=== PATIENT | female | born 1985 | race Caucasian/White ===

== ENCOUNTER 2016-04-28 16:16 | Emergency (ER) | payer OTHER ==
[~2016-04-28 16:16] MED LIST: /LINE60TA; ACET500C PO; ALBU17IN INH; ALBU83IN INH; AUGM500T34 PO; BACT800T; CARV3.12 PO; IBUP-1114 PO; IBUP600T26 PO; INVA1INJ IV; KEFL500C; KLOR1POW2 PO; LABE10TAB PO; LASI40TA PO; LEXA1TAB2 PO; LISI2.5T3 PO; NORC5TAB PO; NORT10SO PO; PAME25CA PO; PERC5TAB6 PO; PERCOCET PO; PREN1TAB11 PO; PRIN20TA3 PO; [UNRECOGNIZED DRUG - OTHER]
[2016-04-28 17:10] LABS: BASO % 0.4 % (0.0-1.0); EOS # 0.2 K/mm3 (0.0-0.50); EOS % 1.8 % (0.0-3.0); LARGE UNSTAINED CELL # 0.2 K/mm3 (0.0-0.4); LARGE UNSTAINED CELL % 1.9 % (0.0-4.0); LYMPH # 2.4 K/mm3 (1.5-4.5); LYMPH % 27.3 % (24.0-44.0); MEAN CORPUSCULAR HEMOGLOBIN 28.4 pg (27.0-33.0); MEAN CORPUSCULAR HGB CONC 33.6 g/dl (32.0-36.5); MEAN CORPUSCULAR VOLUME 84.7 fl (80.0-96.0); MONO # 0.4 K/mm3 (0.0-0.8); MONO % 4.4 % (0.0-5.0); NEUTROPHILS # 5.5 K/mm3 (1.8-7.7); NEUTROPHILS % 64.3 % (36.0-66.0); PLATELET COUNT, AUTOMATED 248 k/mm3 (150-450); WHITE BLOOD COUNT 8.6 K/mm3 (4.0-10.0)
[2016-04-28 17:13] LABS: CONTROL LINE HCG INT CTR LINE PRESENT
[2016-04-28 17:18] LABS: ANION GAP 8 MEQ/L (8-16); BLOOD UREA NITROGEN 14 MG/DL (7-18); CALCIUM LEVEL 8.9 MG/DL (8.5-10.1); CARBON DIOXIDE LEVEL 25 MEQ/L (21-32); CHLORIDE LEVEL 110 MEQ/L (98-107); CREATININE FOR GFR 0.65 MG/DL (0.55-1.02); GLOMERULAR FILTRATION RATE > 60.0 (>60); GLUCOSE, FASTING 121 MG/DL (70-105); POTASSIUM SERUM 3.9 MEQ/L (3.5-5.1); SODIUM LEVEL 143 MEQ/L (136-145)
[2016-04-28 17:29] LABS: INR 0.96
[2016-04-28] MEDS ORDERED: KETOROLAC 30 MG/ML VIAL (J1885) As Ordered ONE (17:52)
[2016-04-28] MEDS ORDERED: NORCO, ANEXSIA 5/325MG TABLET (HYDROcodone/ACETAMINOPHEN) As Ordered ONE (19:06)
--- NOTE | 2016-04-28 19:09 | REP ---
Clinical: Right adnexal pain . Technique: Transabdominal pelvic ultrasound followed by transvaginal examination for better evaluation of the endometrium and adnexa with color Doppler evaluation of the ovaries. Findings: Bladder is unremarkable and measures 7.0 x 5.3 x 5.8 cm . Normal anteverted uterus measures 8.2 x 4.2 x 5.7 cm . The endometrial complex measures 13 mm thickness. No discrete uterine or endometrial abnormalities are appreciated. Bilateral ovaries are normal in appearance and vascularity without evidence for torsion. Right ovary measures 4.3 x 2.3 x 3.0 cm with 2.7 cm hemorrhagic cyst ; R I = 0.52 . Left ovary measures 2.6 x 2.7 x 2.3 cm ; R I = 0.49 . No pelvic fluid or adnexal mass lesion. . Impression: 2.7 cm hemorrhagic cyst in the right ovary. No evidence for torsion. No pelvic free fluid. Signed by Sandoval Madera MD 04/28/2016 07:01 P
--- NOTE | 2016-04-28 19:54 | EDDOCDS ---
Physician Documentation [facility] Name: Annia Pete Age: 30 yrs Sex: Female : 1985 Arrival Date: 04/28/2016 Time: 16:16 Bed 14 Private MD: [facility] Disposition: 04/28/16 19:19 Discharged to Home/Self Care. Impression: Chest pain, unspecified, Unspecified ovarian cysts - right hemorrhagic. - Condition is Stable. - Discharge Instructions: Nonspecific Chest Pain, Chest Wall Pain, Ovarian Cyst, Chest Wall Pain, [id number], Nonspecific Chest Pain, Cjuh-[id number], Ovarian Cyst, Zuma-or-Fuhf. - Prescriptions for [place] 5- 325 mg Oral Tablet - take 1 tablet by ORAL route every 6 hours As needed MDD: 4 tabs; 6 tablet. Naprosyn 500 mg Oral Tablet - take 1 tablet by ORAL route 2 times per day take with food; 30 tablet. - Medication Reconciliation, Local Pharmacy Hours form. - [facility] up: [facility] ; When: Call to arrange an appointment. - Problem is new. - Symptoms have improved. Historical: - Allergies: No known drug Allergies; - Home Meds: 1. Lexapro 20 mg Oral tab once daily 2. nortriptyline 25 mg Oral cap 1 cap nightly - PMHx: Cardiomyopathy; Hypertension; - PSHx: Cesearean Section; Hernia repair- Umbilical; - Social history: Smoking status: Patient uses tobacco products, heavy tobacco smoker. No barriers to communication noted, The patient speaks fluent Venezuelan, Speaks appropriately for age. - Family history: Not pertinent. - : The pt / caregiver states he / she is not on anticoagulants. Home medication list is obtained from the patient. - Exposure Risk Screening:: None identified. 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 6 in. (167.64 cm); Pain 10/10; 17:21 BP 105 / 67 (auto/); tm5 17:21 Pulse 100 MON; Pulse Ox 97% ; tm5 17:36 BP 112 / 72 (auto/); tm5 17:36 Pulse 96 MON; Pulse Ox 98% ; tm5 17:51 BP 111 / 73 (auto/); tm5 17:51 Pulse 92 MON; Pulse Ox 97% ; tm5 18:06 BP 104 / 61 (auto/); tm5 18:06 Pulse 92 MON; Pulse Ox 97% ; tm5 18:21 BP 101 / 64 (auto/); tm5 18:21 Pulse 86 MON; Pulse Ox 98% ; tm5 18:51 BP 111 / 85 (auto/); tm5 18:51 Pulse 118 MON; Pulse Ox 90% ; tm5 19:10 BP 120 / 68; Pulse 77; Resp 20; Temp 98.3(O); Pulse Ox 99% on R/A; Pain 7/10; tm5 19:51 BP 118 / 75; Pulse 89; Resp 18; Temp 97.8(O); Pulse Ox 98% on R/A; Pain 2/10; tm5 16:18 Body Mass Index 33.25 (93.44 kg, 167.64 cm) elp MDM: 16:29 ECG WITH READING ER PHYS+CARDIAG ordered. EDMS 16:57 Qc Chemist/Pulse Ox/q 30 min VS ordered. sd1 16:57 IV Saline Lock ordered. sd1 16:57 Rhythm Strip to chart ordered. sd1 16:57 Undress patient appropriately for examination ordered. sd1 16:58 Basic Metabolic Profile Ordered. EDMS 16:58 CBC with Diff Ordered. EDMS 16:58 Cardiac Injury Profile Ordered. EDMS 16:58 Prothrombin Time Profile\E\INR Ordered. EDMS 16:58 Troponin Ordered. EDMS 16:58 HCG,Serum Qualitative Ordered. EDMS 17:00 -US Pelvic Non-Ob Complete Ordered. EDMS 17:01 DUPLEX SCAN LIMITED (DOPPLER)+US Ordered. EDMS 17:23 Financial registration complete. zo 17:26 [facility] Payment Agreement was scanned into Booktrope and attached to record. zo 17:32 Basic Metabolic Profile Reviewed. sd1 17:32 CBC with Diff Reviewed. sd1 17:32 Cardiac Injury Profile Reviewed. sd1 17:32 Prothrombin Time Profile\E\INR Reviewed. sd1 17:32 Troponin Reviewed. sd1 17:32 HCG,Serum Qualitative Reviewed. sd1 17:45 ketorolac 30 mg IVP once ordered. sd1 18:30 Transvaginal NON- US Ordered. EDMS 18:53 HYDROcodone-acetaminophen 5 mg-325 mg 1 tabs PO once ordered. sd1 19:06 Chest, 1 View Ordered. EDMS Administered Medications: 17:54 Drug: ketorolac 30 mg [ketorolac 30 mg/mL (1 mL) injection solution (1 mL)] Route: IVP; rs3 Site: left antecubital; 19:10 Follow up: Response: No Adverse Reaction; Pain is decreased tm5 19:10 Drug: HYDROcodone-acetaminophen 1 tabs [hydrocodone 5 mg-acetaminophen 325 mg tablet (1 tm5 tabs)] Route: PO; Signatures: Dispatcher [employer] EDMS Rose Mary Finney MD MD sd1 Ash Patel JoshuaRN RN Kelly Heard RN RN tm5 Mayra Padilla RN rs3 The chart was reviewed and I authenticate all verbal orders and agree with the evaluation and treatment provided.Attachments: 17:26 [facility] Agreement [facility]
--- NOTE | 2016-04-28 19:55 | EDDOCDS ---
Nurse's Notes [facility] Name: Annia Pete Age: 30 yrs Sex: Female : 1985 Arrival Date: 04/28/2016 Time: 16:16 Bed 14 Private MD: [facility] Diagnosis: Chest pain, unspecified;Unspecified ovarian cysts-right hemorrhagic Presentation: 04/28 16:24 Presenting complaint: Patient states: Patient reports chest pain. Patient reports pain jmb has been present a couple days. Patient reports that its consistent. Patient denies aspirin prior to arrival. Adult Sepsis Screening: The patient does not have new or worsening altered mentation. Patient's respiratory rate is less than 22. Systolic blood pressure is greater than 100. Patient has a qSOFA score of 0- Negative Sepsis Screen. Suicide/Homicide risk assessment- the patient denies having any suicidal and/or homicidal ideations and does not present with any other emotional, behavioral or mental health complaints. Status: Patient is not a shared services representative or dependent. Transition of care: patient was not received from another setting of care. 16:24 Acuity: ILEANA Level 3 jmb 16:24 Method Of Arrival: Walkin/Carried/Asstd jmb Triage Assessment: 16:25 General: Appears uncomfortable, Behavior is appropriate for age, cooperative. Pain: jmb Location: chest Pain currently is 9 out of 10 on a pain scale. HIV screening NA for this visit Offered previously. Neurological: Level of Consciousness is awake, alert, obeys commands, Oriented to person, place, time. Respiratory: Airway is patent Respiratory effort is even, unlabored, Respiratory pattern is regular. GI: Abdomen is non- distended. Derm: Skin is pink, warm & dry. Musculoskeletal: Range of motion intact in all extremities. 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 Lexapro 20 mg Oral tab once daily 2. nortriptyline 25 mg Oral cap 1 cap nightly - PMHx: Cardiomyopathy; Hypertension; - PSHx: Cesearean Section; Hernia repair- Umbilical; - Social history: Smoking status: Patient uses tobacco products, heavy tobacco smoker. No barriers to communication noted, The patient speaks fluent Indonesian, Speaks appropriately for age. - Family history: Not pertinent. - : The pt / caregiver states he / she is not on anticoagulants. Home medication list is obtained from the patient. - Exposure Risk Screening:: None identified. Screenin:42 Screening information is obtained from the patient. Fall risk: No risks identified. hs1 Assistance ADL's: requires no assistance with activities of daily living. Abuse/DV Screen: The patient / caregiver reports he/she is: not in a situation that causes fear, pain or injury. Nutritional screening: No deficits noted. Advance Directives: There is no active DNR order. home support is adequate. Assessment: 16:40 General: Appears in no apparent distress, Behavior is appropriate for age, cooperative, hs1 crying. Pain: Location: chest and abdomen Pain currently is 8 out of 10 on a pain scale. Quality of pain is described as sharp, stabbing. Neurological: No deficits noted. Cardiovascular: Rhythm is sinus rhythm. Respiratory: Airway is patent Respiratory effort is even, unlabored, Respiratory pattern is regular, symmetrical. GI: Bowel sounds present X 4 quads. Abd is soft and non tender X 4 quads. Abd is tender to palpation in right groin area. GI: Reports nausea, Denies vomiting. GI: Abdomen is non- distended obese. Derm: Skin is pink, warm & dry. normal. 17:42 Reassessment: Patient appears in no apparent distress at this time. Pt aware of plan of hs1 care. Patient has no needs at present. . Adult Sepsis Screening: The patient does not have new or worsening altered mentation. Patient's respiratory rate is less than 22. Systolic blood pressure is greater than 100. Patient has a qSOFA score of 0- Negative Sepsis Screen. 19:10 Reassessment: Patient appears in no apparent distress at this time. pt complains of tm5 7/10 lower abdominal pain at this time, appears to be in no apparent distress is watching football at this time, states that her Ultrasound was done already as well . 19:51 Reassessment: Patient appears in no apparent distress at this time. Patient states tm5 feeling better. Patient states symptoms have improved. General:. Vital Signs: 16:18 BP 111 / 92; Pulse 104; Resp 18; Temp 98.4; Pulse Ox 100% ; Weight 93.44 kg; Height 5 elp ft. 6 in. (167.64 cm); Pain 10/10; 17:21 BP 105 / 67 (auto/); tm5 17:21 Pulse 100 MON; Pulse Ox 97% ; tm5 17:36 BP 112 / 72 (auto/); tm5 17:36 Pulse 96 MON; Pulse Ox 98% ; tm5 17:51 BP 111 / 73 (auto/); tm5 17:51 Pulse 92 MON; Pulse Ox 97% ; tm5 18:06 BP 104 / 61 (auto/); tm5 18:06 Pulse 92 MON; Pulse Ox 97% ; tm5 18:21 BP 101 / 64 (auto/); tm5 18:21 Pulse 86 MON; Pulse Ox 98% ; tm5 18:51 BP 111 / 85 (auto/); tm5 18:51 Pulse 118 MON; Pulse Ox 90% ; tm5 19:10 BP 120 / 68; Pulse 77; Resp 20; Temp 98.3(O); Pulse Ox 99% on R/A; Pain 7/10; tm5 19:51 BP 118 / 75; Pulse 89; Resp 18; Temp 97.8(O); Pulse Ox 98% on R/A; Pain 2/10; tm5 16:18 Body Mass Index 33.25 (93.44 kg, 167.64 cm) [facility] Vitals: 16:18 Log In Time: April 28, 2016 at 16:15. [facility] ED Course: 16:18 Patient visited by Neli Real PCA. elp 16:18 [facility] is Private Physician. elp 16:18 Patient visited by Neli Real PCA. elp 16:18 Patient moved to Waiting elp 16:18 Patient moved to Pre RCE elp 16:24 Triage Initiated jmb 16:27 Darling Arvizu, RN is Primary Nurse. jmb 16:27 Patient moved to 14 jmb 16:38 EKG done. (by ED staff). Reviewed by Rose Mary Finney MD. jrd 16:39 Patient visited by Telly gAustin PCA. jrd 16:40 Inserted saline lock: 18 gauge in left antecubital area and blood collected. The hs1 patient tolerated the procedure well. 16:49 Rose Mary Finney MD is Attending Physician. sd1 16:50 Patient visited by Rose Mary Finney MD. sd1 17:26 [facility] Payment Agreement was scanned into InstyBook and attached to record. zo 17:43 The patient / caregiver is instructed regarding the plan of care and ED course. hs1 18:04 Patient visited by Darling Arvizu RN. hs1 19:09 Patient visited by Kelly Marie RN. tm5 19:19 [facility] is Referral Physician. sd1 19:26 Primary Nurse role handed off by Darling Arvizu RN rs6 19:51 Patient visited by Kelly Marie RN. tm5 19:51 Discontinued lock intact, bleeding controlled, pressure dressing applied, No tm5 redness/swelling at site. No procedures done that require assistance. Administered Medications: 17:54 Drug: ketorolac 30 mg [ketorolac 30 mg/mL (1 mL) injection solution (1 mL)] Route: IVP; rs3 Site: left antecubital; 19:10 Follow up: Response: No Adverse Reaction; Pain is decreased tm5 19:10 Drug: HYDROcodone-acetaminophen 1 tabs [hydrocodone 5 mg-acetaminophen 325 mg tablet (1 tm5 tabs)] Route: PO; Order Results: Lab Order: Basic Metabolic Profile; SPEC'M 04/28/16 16:36 Test: GLUCOSE, FASTING; Value: 121; Range: 70-105; Abnormal: Above high normal; Units: MG/DL; Status: F Test: BLOOD UREA NITROGEN; Value: 14; Range: 7-18; Units: MG/DL; Status: F Test: CREATININE FOR GFR; Value: 0.65; Range: 0.55-1.02; Units: MG/DL; Status: F Test: GLOMERULAR FILTRATION RATE; Value: > 60.0; Range: >60; Status: F Test: SODIUM LEVEL; Value: 143; Range: 136-145; Units: MEQ/L; Status: F Test: POTASSIUM SERUM; Value: 3.9; Range: 3.5-5.1; Units: MEQ/L; Status: F Test: CHLORIDE LEVEL; Value: 110; Range: 98-107; Abnormal: Above high normal; Units: MEQ/L; Status: F Test: CARBON DIOXIDE LEVEL; Value: 25; Range: 21-32; Units: MEQ/L; Status: F Test: ANION GAP; Value: 8; Range: 8-16; Units: MEQ/L; Status: F Test: CALCIUM LEVEL; Value: 8.9; Range: 8.5-10.1; Units: MG/DL; Status: F Test Note: ; Units are mL/min/1.73 m2 Chronic Kidney Disease Staging per NKF: Stage I & II GFR >=60 Normal to Mildly Decreased Stage III GFR 30-59 Moderately Decreased Stage IV GFR 15-29 Severely Decreased Stage V GFR <15 Very Little GFR Left ESRD GFR <15 on [employer] Lab Order: CBC with Diff; SPEC'M 04/28/16 16:36 Test: WHITE BLOOD COUNT; Value: 8.6; Range: 4.0-10.0; Units: K/mm3; Status: F Test: RED BLOOD COUNT; Value: 4.75; Range: 4.00-5.40; Units: M/mm3; Status: F Test: HEMOGLOBIN; Value: 13.5; Range: 12.0-16.0; Units: g/dl; Status: F Test: HEMATOCRIT; Value: 40.2; Range: 36.0-47.0; Units: %; Status: F Test: MEAN CORPUSCULAR VOLUME; Value: 84.7; Range: 80.0-96.0; Units: fl; Status: F Test: MEAN CORPUSCULAR HEMOGLOBIN; Value: 28.4; Range: 27.0-33.0; Units: pg; Status: F Test: MEAN CORPUSCULAR HGB CONC; Value: 33.6; Range: 32.0-36.5; Units: g/dl; Status: F Test: RED CELL DISTRIBUTION WIDTH; Value: 13.0; Range: 11.5-14.5; Units: %; Status: F Test: PLATELET COUNT, AUTOMATED; Value: 248; Range: 150-450; Units: k/mm3; Status: F Test: NEUTROPHILS %; Value: 64.3; Range: 36.0-66.0; Units: %; Status: F Test: LYMPH %; Value: 27.3; Range: 24.0-44.0; Units: %; Status: F Test: MONO %; Value: 4.4; Range: 0.0-5.0; Units: %; Status: F Test: EOS %; Value: 1.8; Range: 0.0-3.0; Units: %; Status: F Test: BASO %; Value: 0.4; Range: 0.0-1.0; Units: %; Status: F Test: LARGE UNSTAINED CELL %; Value: 1.9; Range: 0.0-4.0; Units: %; Status: F Test: NEUTROPHILS #; Value: 5.5; Range: 1.8-7.7; Units: K/mm3; Status: F Test: LYMPH #; Value: 2.4; Range: 1.5-4.5; Units: K/mm3; Status: F Test: MONO #; Value: 0.4; Range: 0.0-0.8; Units: K/mm3; Status: F Test: EOS #; Value: 0.2; Range: 0.0-0.50; Units: K/mm3; Status: F Test: BASO #; Value: 0.0; Range: 0.0-0.2; Units: K/mm3; Status: F Test: LARGE UNSTAINED CELL #; Value: 0.2; Range: 0.0-0.4; Units: K/mm3; Status: F Lab Order: Cardiac Injury Profile; SPEC'M 04/28/16 16:36 Test: CPK CREATINE PHOSPHOKINASE; Value: 67; Range: 26-192; Units: U/L; Status: F Test: CK-MB VALUE MASS; Value: 1.0; Range: 0.0-3.6; Units: NG/ML; Status: F Test: MB/CK RELATIVE INDEX; Value: 1.49; Range: < OR =4; Status: F Test Note: ; DIAGNOSIS CRITERIA MMB ng/ml Relative Index (RI) NON-AMI < or = 5 N/A COOPER ZONE > 5 < or = 4 AMI > 5 > 4 Lab Order: Prothrombin Time Profile\E\INR; SPEC'M 04/28/16 16:36 Test: PROTHROMBIN TIME; Value: 12.9; Range: 12.3-14.5; Units: SECONDS; Status: F Test: INR; Value: 0.96; Status: F Test Note: ; THERAPUTIC HUMAN INR VALUES INDICATIONS NORMAL RANGES PROPHYLAXIS/TREATMENT OF: VENOUS THROMBOSIS 2.0-3.0 PULMONARY EMBOLISM 2.0-3.0 PREVENTION OF SYSTEMIC EMBOLISM FROM: TISSUE HEART VALVES 2.0-3.0 ACUTE MYOCARDIAL INFARCTION 2.0-3.0 VALVULAR HEART DISEASE 2.0-3.0 ATRIAL FIBRILLATION 2.0-3.0 MECHANICAL VALVES(HIGH RISK) 2.5-3.5 RECURRENT MYOCARDIAL INFARCTION 2.5-3.5 Lab Order: Troponin; SPEC'M 04/28/16 16:36 Test: TROPONIN I; Value: < 0.02; Range: < 0.10; Units: NG/ML; Status: F Test Note: ; Troponin I Reference Interval for [employer] LOCI: 99th Percentile= 0.00-0.045 ng/ml Risk Stratification: <= 0.10 ng/ml Decreased Risk for Adverse Clinical Events. 0.10-1.50 ng/ml Increased Risk for Adverse Clinical Events. Evaluation of additional criterion and/or repeat testing in 2-6 hours is suggested to rule out myocardial damage. >= 1.50 ng/ml Indicative of Myocardial Injury. Lab Order: HCG,Serum Qualitative; SPEC'M 04/28/16 16:36 Test: HCG, SERUM QUALITATIVE; Value: NEGATIVE; Range: NEGATIVE; Status: F Outcome: 19:19 Discharge ordered by Provider. sd1 19:51 Discharge Assessment: Patient awake, alert and oriented x 3. No cognitive and/or tm5 functional deficits noted. Patient verbalized understanding of disposition instructions. patient administered narcotics - yes. Pt provided with safe discharge. The following High Risk Discharge criteria are identified: None. Discharged to home ambulatory, with significant other. Condition: good Condition: stable Condition: improved. Discharge instructions given to patient, Instructed on discharge instructions, follow up and referral plans. medication usage, no driving heavy equipment, Demonstrated understanding of instructions, medications, Pt was receptive of discharge instructions/ teaching. Prescriptions given X 2. Ultrasound Study completed. Property :Personal belongings accompany Pt. 19:53 Patient left the ED. tm5 Signatures: Rose Mary Finney MD MD sd1 Ash Patel Rosemary, RN RN rs3 Darling Arvizu RN RN hs1 Neli Real, MANDARIN TUTOR MANDARIN TUTOR Jossue Ruiz RN RN jmb Donoghue, Joseph, MANDARIN TUTOR MANDARIN TUTOR jrd Nirali Stubbs, MANDARIN TUTOR MANDARIN TUTOR rs6 Kelly Marie,RN RN tm5 MTDD
--- NOTE | 2016-04-28 20:37 | REP ---
Clinical: Chest pain . Comparison: 01/09/2015 . Findings: The mediastinum and cardiac silhouette are stable and within normal limits for portable technique. The lung lamb are clear without acute consolidation, effusion, or pneumothorax. Skeletal structures are intact. Impression: Normal portable chest x-ray Signed by Sandoval Madera MD 04/28/2016 08:28 P
--- NOTE | 2016-04-29 07:31 | ECGEPIP ---
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
--- NOTE | 2016-04-30 20:54 | EDDOCDS ---
Nurse's Notes [facility] Name: Cuca Peñaloza Age: 30 yrs Sex: Female : 1985 Arrival Date: 04/28/2016 Time: 16:16 Bed 14 Private MD: [facility] Diagnosis: Chest pain, unspecified;Unspecified ovarian cysts-right hemorrhagic Presentation: 04/28 16:24 Presenting complaint: Patient states: Patient reports chest pain. Patient reports pain jmb has been present a couple days. Patient reports that its consistent. Patient denies aspirin prior to arrival. Adult Sepsis Screening: The patient does not have new or worsening altered mentation. Patient's respiratory rate is less than 22. Systolic blood pressure is greater than 100. Patient has a qSOFA score of 0- Negative Sepsis Screen. Suicide/Homicide risk assessment- the patient denies having any suicidal and/or homicidal ideations and does not present with any other emotional, behavioral or mental health complaints. Status: Patient is not a social service director or dependent. Transition of care: patient was not received from another setting of care. 16:24 Acuity: ILEANA Level 3 jmb 16:24 Method Of Arrival: Walkin/Carried/Asstd jmb Triage Assessment: 16:25 General: Appears uncomfortable, Behavior is appropriate for age, cooperative. Pain: jmb Location: chest Pain currently is 9 out of 10 on a pain scale. HIV screening NA for this visit Offered previously. Neurological: Level of Consciousness is awake, alert, obeys commands, Oriented to person, place, time. Respiratory: Airway is patent Respiratory effort is even, unlabored, Respiratory pattern is regular. GI: Abdomen is non- distended. Derm: Skin is pink, warm & dry. Musculoskeletal: Range of motion intact in all extremities. 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 Lexapro 20 mg Oral tab once daily 2. nortriptyline 25 mg Oral cap 1 cap nightly - PMHx: Cardiomyopathy; Hypertension; - PSHx: Cesearean Section; Hernia repair- Umbilical; - Social history: Smoking status: Patient uses tobacco products, heavy tobacco smoker. No barriers to communication noted, The patient speaks fluent Welsh, Speaks appropriately for age. - Family history: Not pertinent. - : The pt / caregiver states he / she is not on anticoagulants. Home medication list is obtained from the patient. - Exposure Risk Screening:: None identified. Screenin:42 Screening information is obtained from the patient. Fall risk: No risks identified. hs1 Assistance ADL's: requires no assistance with activities of daily living. Abuse/DV Screen: The patient / caregiver reports he/she is: not in a situation that causes fear, pain or injury. Nutritional screening: No deficits noted. Advance Directives: There is no active DNR order. home support is adequate. Assessment: 16:40 General: Appears in no apparent distress, Behavior is appropriate for age, cooperative, hs1 crying. Pain: Location: chest and abdomen Pain currently is 8 out of 10 on a pain scale. Quality of pain is described as sharp, stabbing. Neurological: No deficits noted. Cardiovascular: Rhythm is sinus rhythm. Respiratory: Airway is patent Respiratory effort is even, unlabored, Respiratory pattern is regular, symmetrical. GI: Bowel sounds present X 4 quads. Abd is soft and non tender X 4 quads. Abd is tender to palpation in right groin area. GI: Reports nausea, Denies vomiting. GI: Abdomen is non- distended obese. Derm: Skin is pink, warm & dry. normal. 17:42 Reassessment: Patient appears in no apparent distress at this time. Pt aware of plan of hs1 care. Patient has no needs at present. . Adult Sepsis Screening: The patient does not have new or worsening altered mentation. Patient's respiratory rate is less than 22. Systolic blood pressure is greater than 100. Patient has a qSOFA score of 0- Negative Sepsis Screen. 19:10 Reassessment: Patient appears in no apparent distress at this time. pt complains of tm5 7/10 lower abdominal pain at this time, appears to be in no apparent distress is watching football at this time, states that her Ultrasound was done already as well . 19:51 Reassessment: Patient appears in no apparent distress at this time. Patient states tm5 feeling better. Patient states symptoms have improved. General:. Vital Signs: 16:18 BP 111 / 92; Pulse 104; Resp 18; Temp 98.4; Pulse Ox 100% ; Weight 93.44 kg; Height 5 elp ft. 6 in. (167.64 cm); Pain 10/10; 17:21 BP 105 / 67 (auto/); tm5 17:21 Pulse 100 MON; Pulse Ox 97% ; tm5 17:36 BP 112 / 72 (auto/); tm5 17:36 Pulse 96 MON; Pulse Ox 98% ; tm5 17:51 BP 111 / 73 (auto/); tm5 17:51 Pulse 92 MON; Pulse Ox 97% ; tm5 18:06 BP 104 / 61 (auto/); tm5 18:06 Pulse 92 MON; Pulse Ox 97% ; tm5 18:21 BP 101 / 64 (auto/); tm5 18:21 Pulse 86 MON; Pulse Ox 98% ; tm5 18:51 BP 111 / 85 (auto/); tm5 18:51 Pulse 118 MON; Pulse Ox 90% ; tm5 19:10 BP 120 / 68; Pulse 77; Resp 20; Temp 98.3(O); Pulse Ox 99% on R/A; Pain 7/10; tm5 19:51 BP 118 / 75; Pulse 89; Resp 18; Temp 97.8(O); Pulse Ox 98% on R/A; Pain 2/10; tm5 16:18 Body Mass Index 33.25 (93.44 kg, 167.64 cm) [facility] Vitals: 16:18 Log In Time: April 28, 2016 at 16:15. [facility] ED Course: 16:18 Patient visited by Neli Real PCA. elp 16:18 [facility] is Private Physician. elp 16:18 Patient visited by Neli Real PCA. elp 16:18 Patient moved to Waiting elp 16:18 Patient moved to Pre RCE elp 16:24 Triage Initiated jmb 16:27 Darling Arvizu, RN is Primary Nurse. jmb 16:27 Patient moved to 14 jmb 16:38 EKG done. (by ED staff). Reviewed by Rose Mary Finney MD. jrd 16:39 Patient visited by Telly Agustin PCA. jrd 16:40 Inserted saline lock: 18 gauge in left antecubital area and blood collected. The hs1 patient tolerated the procedure well. 16:49 Rose Mray Finney MD is Attending Physician. sd1 16:50 Patient visited by Rose Mary Finney MD. sd1 17:26 [facility] Payment Agreement was scanned into [employer] and attached to record. zo 17:43 The patient / caregiver is instructed regarding the plan of care and ED course. hs1 18:04 Patient visited by Darling Arvizu RN. hs1 19:09 Patient visited by Kelly Marie RN. tm5 19:19 [facility] is Referral Physician. sd1 19:26 Primary Nurse role handed off by Darling Arvizu RN rs6 19:51 Patient visited by Kelly Marie RN. tm5 19:51 Discontinued lock intact, bleeding controlled, pressure dressing applied, No tm5 redness/swelling at site. No procedures done that require assistance. 19:54 -US Pelvic Non-Ob Complete Returned. EDMS 20:32 T-Sheet-- Draft Copy was scanned into [employer] and attached to record. klr 20:38 ECG/EKG was scanned into [employer] and attached to record. klr 20:43 Chest, 1 View Returned. EDMS 04/29 07:59 EKG-ADULT Returned. EDMS Administered Medications: 04/28 17:54 Drug: ketorolac 30 mg [ketorolac 30 mg/mL (1 mL) injection solution (1 mL)] Route: IVP; rs3 Site: left antecubital; 19:10 Follow up: Response: No Adverse Reaction; Pain is decreased tm5 19:10 Drug: HYDROcodone-acetaminophen 1 tabs [hydrocodone 5 mg-acetaminophen 325 mg tablet (1 tm5 tabs)] Route: PO; Order Results: Lab Order: Basic Metabolic Profile; SPEC'M 04/28/16 16:36 Test: GLUCOSE, FASTING; Value: 121; Range: 70-105; Abnormal: Above high normal; Units: MG/DL; Status: F Test: BLOOD UREA NITROGEN; Value: 14; Range: 7-18; Units: MG/DL; Status: F Test: CREATININE FOR GFR; Value: 0.65; Range: 0.55-1.02; Units: MG/DL; Status: F Test: GLOMERULAR FILTRATION RATE; Value: > 60.0; Range: >60; Status: F Test: SODIUM LEVEL; Value: 143; Range: 136-145; Units: MEQ/L; Status: F Test: POTASSIUM SERUM; Value: 3.9; Range: 3.5-5.1; Units: MEQ/L; Status: F Test: CHLORIDE LEVEL; Value: 110; Range: 98-107; Abnormal: Above high normal; Units: MEQ/L; Status: F Test: CARBON DIOXIDE LEVEL; Value: 25; Range: 21-32; Units: MEQ/L; Status: F Test: ANION GAP; Value: 8; Range: 8-16; Units: MEQ/L; Status: F Test: CALCIUM LEVEL; Value: 8.9; Range: 8.5-10.1; Units: MG/DL; Status: F Test Note: ; Units are mL/min/1.73 m2 Chronic Kidney Disease Staging per NKF: Stage I & II GFR >=60 Normal to Mildly Decreased Stage III GFR 30-59 Moderately Decreased Stage IV GFR 15-29 Severely Decreased Stage V GFR <15 Very Little GFR Left ESRD GFR <15 on NURSE EXECUTIVE Lab Order: CBC with Diff; SPEC'M 04/28/16 16:36 Test: WHITE BLOOD COUNT; Value: 8.6; Range: 4.0-10.0; Units: K/mm3; Status: F Test: RED BLOOD COUNT; Value: 4.75; Range: 4.00-5.40; Units: M/mm3; Status: F Test: HEMOGLOBIN; Value: 13.5; Range: 12.0-16.0; Units: g/dl; Status: F Test: HEMATOCRIT; Value: 40.2; Range: 36.0-47.0; Units: %; Status: F Test: MEAN CORPUSCULAR VOLUME; Value: 84.7; Range: 80.0-96.0; Units: fl; Status: F Test: MEAN CORPUSCULAR HEMOGLOBIN; Value: 28.4; Range: 27.0-33.0; Units: pg; Status: F Test: MEAN CORPUSCULAR HGB CONC; Value: 33.6; Range: 32.0-36.5; Units: g/dl; Status: F Test: RED CELL DISTRIBUTION WIDTH; Value: 13.0; Range: 11.5-14.5; Units: %; Status: F Test: PLATELET COUNT, AUTOMATED; Value: 248; Range: 150-450; Units: k/mm3; Status: F Test: NEUTROPHILS %; Value: 64.3; Range: 36.0-66.0; Units: %; Status: F Test: LYMPH %; Value: 27.3; Range: 24.0-44.0; Units: %; Status: F Test: MONO %; Value: 4.4; Range: 0.0-5.0; Units: %; Status: F Test: EOS %; Value: 1.8; Range: 0.0-3.0; Units: %; Status: F Test: BASO %; Value: 0.4; Range: 0.0-1.0; Units: %; Status: F Test: LARGE UNSTAINED CELL %; Value: 1.9; Range: 0.0-4.0; Units: %; Status: F Test: NEUTROPHILS #; Value: 5.5; Range: 1.8-7.7; Units: K/mm3; Status: F Test: LYMPH #; Value: 2.4; Range: 1.5-4.5; Units: K/mm3; Status: F Test: MONO #; Value: 0.4; Range: 0.0-0.8; Units: K/mm3; Status: F Test: EOS #; Value: 0.2; Range: 0.0-0.50; Units: K/mm3; Status: F Test: BASO #; Value: 0.0; Range: 0.0-0.2; Units: K/mm3; Status: F Test: LARGE UNSTAINED CELL #; Value: 0.2; Range: 0.0-0.4; Units: K/mm3; Status: F Lab Order: Cardiac Injury Profile; SPEC'M 04/28/16 16:36 Test: CPK CREATINE PHOSPHOKINASE; Value: 67; Range: 26-192; Units: U/L; Status: F Test: CK-MB VALUE MASS; Value: 1.0; Range: 0.0-3.6; Units: NG/ML; Status: F Test: MB/CK RELATIVE INDEX; Value: 1.49; Range: < OR =4; Status: F Test Note: ; DIAGNOSIS CRITERIA MMB ng/ml Relative Index (RI) NON-AMI < or = 5 N/A COOPER ZONE > 5 < or = 4 AMI > 5 > 4 Lab Order: Prothrombin Time Profile\E\INR; SPEC'M 04/28/16 16:36 Test: PROTHROMBIN TIME; Value: 12.9; Range: 12.3-14.5; Units: SECONDS; Status: F Test: INR; Value: 0.96; Status: F Test Note: ; THERAPUTIC HUMAN INR VALUES INDICATIONS NORMAL RANGES PROPHYLAXIS/TREATMENT OF: VENOUS THROMBOSIS 2.0-3.0 PULMONARY EMBOLISM 2.0-3.0 PREVENTION OF SYSTEMIC EMBOLISM FROM: TISSUE HEART VALVES 2.0-3.0 ACUTE MYOCARDIAL INFARCTION 2.0-3.0 VALVULAR HEART DISEASE 2.0-3.0 ATRIAL FIBRILLATION 2.0-3.0 MECHANICAL VALVES(HIGH RISK) 2.5-3.5 RECURRENT MYOCARDIAL INFARCTION 2.5-3.5 Lab Order: Troponin; SPEC'M 04/28/16 16:36 Test: TROPONIN I; Value: < 0.02; Range: < 0.10; Units: NG/ML; Status: F Test Note: ; Troponin I Reference Interval for [employer] LOCI: 99th Percentile= 0.00-0.045 ng/ml Risk Stratification: <= 0.10 ng/ml Decreased Risk for Adverse Clinical Events. 0.10-1.50 ng/ml Increased Risk for Adverse Clinical Events. Evaluation of additional criterion and/or repeat testing in 2-6 hours is suggested to rule out myocardial damage. >= 1.50 ng/ml Indicative of Myocardial Injury. 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; : 1985 Requested By: Rose Mary Finney; Order Number: [id number] Reading MD: Rose Mary Finney; Measurements; Intervals Endeavor; Rate: 92 P: 64; GA: 160 QRS: 55; QRSD: 91 T: 61; QT: 331; QTc: 411; Interpretive Statements; SINUS RHYTHM WITH SINUS ARRHYTHMIA; ; Electronically Signed On 04-29-2016 7:31:36 EST by Rose Mary Finney; Radiology Order: -US Pelvic Non-Ob Complete Test: -US Pelvic Non-Ob Complete REASON FOR EXAMINATION: Adnexal Pain r/o Torsion; Clinical: Right adnexal pain .; ; Technique: Transabdominal pelvic ultrasound followed by transvaginal examination; for better evaluation of the endometrium and adnexa with color Doppler evaluation; of the ovaries.; ; Findings:; ; Bladder is unremarkable and measures 7.0 x 5.3 x 5.8 cm .; ; Normal anteverted uterus measures 8.2 x 4.2 x 5.7 cm . The endometrial complex; measures 13 mm thickness. No discrete uterine or endometrial abnormalities are; appreciated.; ; Bilateral ovaries are normal in appearance and vascularity without evidence for; torsion. Right ovary measures 4.3 x 2.3 x 3.0 cm with 2.7 cm hemorrhagic cyst ;; R I = 0.52 . Left ovary measures 2.6 x 2.7 x 2.3 cm ; R I = 0.49 .; ; No pelvic fluid or adnexal mass lesion. .; ; Impression:; 2.7 cm hemorrhagic cyst in the right ovary. No evidence for torsion. No; pelvic free fluid.; ; ; Signed by; Sandoval Madera MD 04/28/2016 07:01 P; Radiology Order: Chest, 1 View Test: Chest, 1 View REASON FOR EXAMINATION: Chest Pain; Clinical: Chest pain .; ; Comparison: 01/09/2015 .; ; Findings:; The mediastinum and cardiac silhouette are stable and within normal limits for; portable technique. The lung lamb are clear without acute consolidation,; effusion, or pneumothorax. Skeletal structures are intact.; ; Impression:; Normal portable chest x-ray; ; ; Signed by; Sandoval Madera MD 04/28/2016 08:28 P; Outcome: 19:19 Discharge ordered by Provider. sd1 19:51 Discharge Assessment: Patient awake, alert and oriented x 3. No cognitive and/or tm5 functional deficits noted. Patient verbalized understanding of disposition instructions. patient administered narcotics - yes. Pt provided with safe discharge. The following High Risk Discharge criteria are identified: None. Discharged to home ambulatory, with significant other. Condition: good Condition: stable Condition: improved. Discharge instructions given to patient, Instructed on discharge instructions, follow up and referral plans. medication usage, no driving heavy equipment, Demonstrated understanding of instructions, medications, Pt was receptive of discharge instructions/ teaching. Prescriptions given X 2. Ultrasound Study completed. Property :Personal belongings accompany Pt. 19:53 Patient left the ED. tm5 Signatures: Dispatcher [employer] EDMS Rose Mary Finney MD MD sd1 Ash Patel Rosemary,RN RN rs3 Darling Arvizu RN RN hs1 Neli Real, CONSTRUCTION FIELD ENGINEER CONSTRUCTION FIELD ENGINEER Jossue Ruiz,RN RN Telly Gambino, CONSTRUCTION FIELD ENGINEER CONSTRUCTION FIELD ENGINEER Nirali Quezada, CONSTRUCTION FIELD ENGINEER CONSTRUCTION FIELD ENGINEER rs6 Cherise Butler Tonya,RN RN tm5 Chart Complete GEMINI
--- NOTE | 2016-04-30 20:54 | EDDOCDS ---
Physician Documentation [facility] Name: Annia Pete Age: 30 yrs Sex: Female : 1985 Arrival Date: 04/28/2016 Time: 16:16 Bed 14 Private MD: [facility] Disposition: 04/28/16 19:19 Discharged to Home/Self Care. Impression: Chest pain, unspecified, Unspecified ovarian cysts - right hemorrhagic. - Condition is Stable. - Discharge Instructions: Nonspecific Chest Pain, Chest Wall Pain, Ovarian Cyst, Chest Wall Pain, [id number], Nonspecific Chest Pain, [id number], Ovarian Cyst, [id number]. - Prescriptions for [place] 5- 325 mg Oral Tablet - take 1 tablet by ORAL route every 6 hours As needed MDD: 4 tabs; 6 tablet. Naprosyn 500 mg Oral Tablet - take 1 tablet by ORAL route 2 times per day take with food; 30 tablet. - Medication Reconciliation, Local Pharmacy Hours form. - Follow up: [facility] ; When: Call to arrange an appointment. - Problem is new. - Symptoms have improved. Historical: - Allergies: No known drug Allergies; - Home Meds: 1. Lexapro 20 mg Oral tab once daily 2. nortriptyline 25 mg Oral cap 1 cap nightly - PMHx: Cardiomyopathy; Hypertension; - PSHx: Cesearean Section; Hernia repair- Umbilical; - Social history: Smoking status: Patient uses tobacco products, heavy tobacco smoker. No barriers to communication noted, The patient speaks fluent [place]agu[place], Speaks appropriately for age. - Family history: Not pertinent. - : The pt / caregiver states he / she is not on anticoagulants. Home medication list is obtained from the patient. - Exposure Risk Screening:: None identified. 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 [place] Vital Signs: 16:18 BP 111 / 92; Pulse 104; Resp 18; Temp 98.4; Pulse Ox 100% ; Weight 93.44 kg / 206 lbs; elp Height 5 ft. 6 in. (167.64 cm); Pain 10/10; 17:21 BP 105 / 67 (auto/); tm5 17:21 Pulse 100 MON; Pulse Ox 97% ; tm5 17:36 BP 112 / 72 (auto/); tm5 17:36 Pulse 96 MON; Pulse Ox 98% ; tm5 17:51 BP 111 / 73 (auto/); tm5 17:51 Pulse 92 MON; Pulse Ox 97% ; tm5 18:06 BP 104 / 61 (auto/); tm5 18:06 Pulse 92 MON; Pulse Ox 97% ; tm5 18:21 BP 101 / 64 (auto/); tm5 18:21 Pulse 86 MON; Pulse Ox 98% ; tm5 18:51 BP 111 / 85 (auto/); tm5 18:51 Pulse 118 MON; Pulse Ox 90% ; tm5 19:10 BP 120 / 68; Pulse 77; Resp 20; Temp 98.3(O); Pulse Ox 99% on R/A; Pain 7/10; tm5 19:51 BP 118 / 75; Pulse 89; Resp 18; Temp 97.8(O); Pulse Ox 98% on R/A; Pain 2/10; tm5 16:18 Body Mass Index 33.25 (93.44 kg, 167.64 cm) elp MDM: 16:29 ECG WITH READING ER PHYS+CARDIAG ordered. EDMS 16:57 Uniformer/Pulse Ox/q 30 min VS ordered. sd1 16:57 IV Saline Lock ordered. sd1 16:57 Rhythm Strip to chart ordered. sd1 16:57 Undress patient appropriately for examination ordered. sd1 16:58 Basic Metabolic Profile Ordered. EDMS 16:58 CBC with Diff Ordered. EDMS 16:58 Cardiac Injury Profile Ordered. EDMS 16:58 Prothrombin Time Profile\E\INR Ordered. EDMS 16:58 Troponin Ordered. EDMS 16:58 HCG,Serum Qualitative Ordered. EDMS 17:00 -US Pelvic Non-Ob Complete Ordered. EDMS 17:01 DUPLEX SCAN LIMITED (DOPPLER)+US Ordered. EDMS 17:23 Financial registration complete. zo 17:26 [facility] [place] was scanned into [employer] and attached to record. zo 17:32 Basic Metabolic Profile Reviewed. sd1 17:32 CBC with Diff Reviewed. sd1 17:32 Cardiac Injury Profile Reviewed. sd1 17:32 Prothrombin Time Profile\E\INR Reviewed. sd1 17:32 Troponin Reviewed. sd1 17:32 HCG,Serum Qualitative Reviewed. sd1 17:45 ketorolac 30 mg IVP once ordered. sd1 18:30 Transvaginal NON- US Ordered. EDMS 18:53 HYDROcodone-acetaminophen 5 mg-325 mg 1 tabs PO once ordered. sd1 19:06 Chest, 1 View Ordered. EDMS 20:32 T-Sheet-- Draft Copy was scanned into [employer] and attached to record. klr 20:38 ECG/EKG was scanned into [employer] and attached to record. klr Administered Medications: 17:54 Drug: ketorolac 30 mg [ketorolac 30 mg/mL (1 mL) injection solution (1 mL)] Route: IVP; rs3 Site: left antecubital; 19:10 Follow up: Response: No Adverse Reaction; Pain is decreased tm5 19:10 Drug: HYDROcodone-acetaminophen 1 tabs [hydrocodone 5 mg-acetaminophen 325 mg tablet (1 tm5 tabs)] Route: PO; Signatures: Dispatcher [employer] EDMS Rose Mary Finney MD MD sd1 Ash Patel Joshua, RN RN Cherise Allen Tonya, RN RN tm5 Mayra Padilla RN rs3 The chart was reviewed and I authenticate all verbal orders and agree with the evaluation and treatment provided.Attachments: 17:26 [facility] zo 20:32 T-Sheet-- Draft Copy klr 20:38 ECG/EKG klr Chart Complete MTDD
--- NOTE | 2016-04-30 20:54 | EDDOCDS ---
Physician Documentation [facility] Name: Annia Pete Age: 30 yrs Sex: Female : 1985 Arrival Date: 04/28/2016 Time: 16:16 Bed 14 Private [facility]: [facility] Disposition: 04/28/16 19:19 Discharged to Home/Self Care. Impression: Chest pain, unspecified, Unspecified ovarian cysts - right hemorrhagic. - Condition is Stable. - Discharge Instructions: Nonspecific Chest Pain, Chest Wall Pain, Ovarian Cyst, Chest Wall Pain, Otjf-rv-Rjul, Nonspecific Chest Pain, Vgtb-ng-Gwmo, Ovarian Cyst, Vjll-mr-Cihu. - Prescriptions for [place] 5- 325 mg Oral Tablet - take 1 tablet by ORAL route every 6 hours As needed MDD: 4 tabs; 6 tablet. Naprosyn 500 mg Oral Tablet - take 1 tablet by ORAL route 2 times per day take with food; 30 tablet. - Medication Reconciliation, Local Pharmacy Hours form. - Follow up: [facility] ; When: Call to arrange an appointment. - Problem is new. - Symptoms have improved. Historical: - Allergies: No known drug Allergies; - Home Meds: 1. Lexapro 20 mg Oral tab once daily 2. nortriptyline 25 mg Oral cap 1 cap nightly - PMHx: Cardiomyopathy; Hypertension; - PSHx: Cesearean Section; Hernia repair- Umbilical; - Social history: Smoking status: Patient uses tobacco products, heavy tobacco smoker. No barriers to communication noted, The patient speaks fluent [place], Speaks appropriately for age. - Family history: Not pertinent. - : The pt / caregiver states he / she is not on anticoagulants. Home medication list is obtained from the patient. - Exposure Risk Screening:: None identified. 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 6 in. (167.64 cm); Pain 10/10; 17:21 BP 105 / 67 (auto/); tm5 17:21 Pulse 100 MON; Pulse Ox 97% ; tm5 17:36 BP 112 / 72 (auto/); tm5 17:36 Pulse 96 MON; Pulse Ox 98% ; tm5 17:51 BP 111 / 73 (auto/); tm5 17:51 Pulse 92 MON; Pulse Ox 97% ; tm5 18:06 BP 104 / 61 (auto/); tm5 18:06 Pulse 92 MON; Pulse Ox 97% ; tm5 18:21 BP 101 / 64 (auto/); tm5 18:21 Pulse 86 MON; Pulse Ox 98% ; tm5 18:51 BP 111 / 85 (auto/); tm5 18:51 Pulse 118 MON; Pulse Ox 90% ; tm5 19:10 BP 120 / 68; Pulse 77; Resp 20; Temp 98.3(O); Pulse Ox 99% on R/A; Pain 7/10; tm5 19:51 BP 118 / 75; Pulse 89; Resp 18; Temp 97.8(O); Pulse Ox 98% on R/A; Pain 2/10; tm5 16:18 Body Mass Index 33.25 (93.44 kg, 167.64 cm) elp MDM: 16:29 ECG WITH READING ER PHYS+CARDIAG ordered. EDMS 16:57 Tie Up Worker/Pulse Ox/q 30 min VS ordered. sd1 16:57 IV Saline Lock ordered. sd1 16:57 Rhythm Strip to chart ordered. sd1 16:57 Undress patient appropriately for examination ordered. sd1 16:58 Basic Metabolic Profile Ordered. EDMS 16:58 CBC with Diff Ordered. EDMS 16:58 Cardiac Injury Profile Ordered. EDMS 16:58 Prothrombin Time Profile\E\INR Ordered. EDMS 16:58 Troponin Ordered. EDMS 16:58 HCG,Serum Qualitative Ordered. EDMS 17:00 -US Pelvic Non-Ob Complete Ordered. EDMS 17:01 DUPLEX SCAN LIMITED (DOPPLER)+US Ordered. EDMS 17:23 Financial registration complete. zo 17:26 [facility] Payment Agreement was scanned into [email or web address] and attached to record. zo 17:32 Basic Metabolic Profile Reviewed. sd1 17:32 CBC with Diff Reviewed. sd1 17:32 Cardiac Injury Profile Reviewed. sd1 17:32 Prothrombin Time Profile\E\INR Reviewed. sd1 17:32 Troponin Reviewed. sd1 17:32 HCG,Serum Qualitative Reviewed. sd1 17:45 ketorolac 30 mg IVP once ordered. sd1 18:30 Transvaginal NON- US Ordered. EDMS 18:53 HYDROcodone-acetaminophen 5 mg-325 mg 1 tabs PO once ordered. sd1 19:06 Chest, 1 View Ordered. EDMS 20:32 T-Sheet-- Draft Copy was scanned into [email or web address] and attached to record. klr 20:38 ECG/EKG was scanned into [email or web address] and attached to record. klr Administered Medications: 17:54 Drug: ketorolac 30 mg [ketorolac 30 mg/mL (1 mL) injection solution (1 mL)] Route: IVP; rs3 Site: left antecubital; 19:10 Follow up: Response: No Adverse Reaction; Pain is decreased tm5 19:10 Drug: HYDROcodone-acetaminophen 1 tabs [hydrocodone 5 mg-acetaminophen 325 mg tablet (1 tm5 tabs)] Route: PO; Signatures: Dispatcher [employer] EDMS Rose Mary Finney MD MD sd1 Ash Patel Joshua, RN RN Cherise Allen Tonya, RN RN tm5 Mayra Padilla RN rs3 The chart was reviewed and I authenticate all verbal orders and agree with the evaluation and treatment provided.Attachments: 17:26 [facility] Payment Agreement zo 20:32 T-Sheet-- Draft Copy klr 20:38 ECG/EKG klr Chart Complete MTDD
== END 2016-04-28 19:53 | disposition home or self-care (01) ==
LOC: M ED 16:16
DX: N83.291 Other ovarian cyst, right side (principal); I10 Essential (primary) hypertension; I42.9 Cardiomyopathy, unspecified; F17.200 Nicotine dependence, unspecified, uncomplicated; Z79.899 Other long term (current) drug therapy
CPT/HCPCS: 36415; 71010; 76830; 76856; 80048; 82550; 82553; 84703; 85025; 85610; 93005; 93041; 93976; 96374; 99285; J1885

== ENCOUNTER 2016-05-12 20:15 | Emergency (ER) | payer OTHER ==
--- NOTE | 2016-05-12 21:44 | EDDOCDS ---
Physician Documentation [facility] Name: Annia Pete Age: 30 yrs Sex: Female : 1985 Arrival Date: 05/12/2016 Time: 20:15 Bed Triage 3 Private MD: [facility] Disposition: 05/12/16 21:38 Discharged to Home/Self Care. Impression: Acute nasopharyngitis [common cold]. - Condition is Stable. - Discharge Instructions: Cool Mist Vaporizers, Upper Respiratory Infection, Adult, Zbnb-kh-Oozx, Viral Infections, Puih-Mk-Sjkt. - Medication Reconciliation, Local Pharmacy Hours form. - Follow up: [facility]; When: Call to arrange an appointment; Reason: Further diagnostic work-up, Recheck today's complaints, Continuance of care. - Problem is new. - Symptoms are unchanged. Historical: - Allergies: no known allergies; - Home Meds: 1. nortriptyline 25 mg Oral cap 1 cap nightly 2. Lexapro 20 mg Oral tab once daily - PMHx: Cardiomyopathy; Hypertension; - PSHx: Cesearean Section; Hernia repair- Umbilical; - Social history: Smoking status: Patient uses tobacco products, light tobacco smoker. No barriers to communication noted, The patient speaks fluent Arabic. - Family history: Not pertinent. - : The pt / caregiver states he / she is not on anticoagulants. Home medication list is obtained from the patient. - Exposure Risk Screening:: None identified. 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 7 in. (170.18 cm) (R); Pain 5/10; 20:17 Body Mass Index 32.26 (93.44 kg, 170.18 cm) elp Signatures: Mayra PadillaRN RN rs3 Papito Walden PA PA btw McIntyre, Stephanie,RUSS NANNY/HOUSEHOLD MANAGER slm MTDD
--- NOTE | 2016-05-12 21:44 | EDDOCDS ---
Nurse's Notes [facility] Name: Annia Pete Age: 30 yrs Sex: Female : 1985 Arrival Date: 05/12/2016 Time: 20:15 Bed Triage 3 Private MD: [facility] Diagnosis: Acute nasopharyngitis [common cold] Presentation: 05/12 20:23 Presenting complaint: Patient states: chest congestion for 3 days. Adult Sepsis rs3 Screening: The patient does not have new or worsening altered mentation. Patient's respiratory rate is less than 22. Systolic blood pressure is greater than 100. Patient has a qSOFA score of 0- Negative Sepsis Screen. Suicide/Homicide risk assessment- the patient denies having any suicidal and/or homicidal ideations and does not present with any other emotional, behavioral or mental health complaints. Status: Patient is not a track service worker or dependent. Transition of care: patient was not received from another setting of care. 20:23 Acuity: ILEANA Level 4 rs3 20:23 Method Of Arrival: Walkin/Carried/Asstd rs3 Triage Assessment: 20:24 General: Appears in no apparent distress. Pain: Denies pain. HIV screening NA for this rs3 visit Offered previously. Respiratory: Onset: The symptoms/episode began/occurred gradually. 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 nortriptyline 25 mg Oral cap 1 cap nightly 2. Lexapro 20 mg Oral tab once daily - PMHx: Cardiomyopathy; Hypertension; - PSHx: Cesearean Section; Hernia repair- Umbilical; - Social history: Smoking status: Patient uses tobacco products, light tobacco smoker. No barriers to communication noted, The patient speaks fluent Hebrew. - Family history: Not pertinent. - : The pt / caregiver states he / she is not on anticoagulants. Home medication list is obtained from the patient. - Exposure Risk Screening:: None identified. Screenin:42 Screening information is obtained from the patient. Fall risk: No risks identified. slm Assistance ADL's: requires no assistance with activities of daily living. Abuse/DV Screen: The patient / caregiver reports he/she is: not in a situation that causes fear, pain or injury. Nutritional screening: No deficits noted. Advance Directives: Currently, there is no health care proxy. There is no active DNR order. There is no living will. There is no Power of Manager Visual. Advance directive information has not previously been placed in an [facility] medical record. home support is adequate. Assessment: 21:42 General: Appears in no apparent distress, comfortable, Behavior is appropriate for age. slm General: pt c/o cough x 3 days . Respiratory: Airway is patent Respiratory effort is even, unlabored. Derm: Skin is pink, warm & dry. Vital Signs: 20:17 BP 120 / 83; Pulse 95; Resp 18; Temp 99.1(O); Pulse Ox 100% on R/A; Weight 93.44 kg elp (R); Height 5 ft. 7 in. (170.18 cm) (R); Pain 5/10; 20:17 Body Mass Index 32.26 (93.44 kg, 170.18 cm) elp Vitals: 20:17 Log In Time: May 12, 2016 at 20:15. elp ED Course: 20:16 Patient visited by Neli Real PCA. elp 20:16 Patient moved to Waiting elp 20:17 [facility] is Private Physician. elp 20:18 Patient visited by Neli Real PCA. elp 20:18 Patient moved to Pre RCE elp 20:23 Triage Initiated rs3 21:03 Patient moved to Triage 3 ct3 21:10 [facility] btw 21:10 Damian Mays DO is Attending Physician. btw 21:10 Patient visited by Papito Walden PA. btw 21:38 [facility] is Referral Physician. btw 21:42 No IV's were initiated during this patient's visit. No procedures done that require slm assistance. 21:43 Patient visited by Marely Giles LPN. slm 21:43 The patient / caregiver is instructed regarding the plan of care and ED course. Patient slm has correct armband on for positive identification. Bed in low position. Order Results: There are currently no results for this order. Outcome: 21:38 Discharge ordered by Provider. btw 21:43 Discharge Assessment: Patient awake, alert and oriented x 3. No cognitive and/or slm functional deficits noted. Patient verbalized understanding of disposition instructions. patient administered narcotics - no. The following High Risk Discharge criteria are identified: None. Discharged to home ambulatory. Condition: good. Discharge instructions given to patient, Instructed on discharge instructions, follow up and referral plans. Demonstrated understanding of instructions, Pt was receptive of discharge instructions/ teaching. No special radiology studies were completed. Property :Personal belongings accompany Pt. 21:43 Patient left the ED. slm Signatures: Mayra Padilla RN RN rs3 Papito Walden PA PA btw Kimberly Xie, PILLOW FILLER PILLOW FILLER ct3 Neli Real, PILLOW FILLER PILLOW FILLER elp Marely Giles,CLINICAL WRITER CLINICAL WRITER slm MTDD
--- NOTE | 2016-05-14 22:45 | EDDOCDS ---
Physician Documentation [facility] Name: Annia Pete Age: 30 yrs Sex: Female : 1985 Arrival Date: 05/12/2016 Time: 20:15 Bed Triage 3 Private MD: [facility] Disposition: 05/12/16 21:38 Discharged to Home/Self Care. Impression: Acute nasopharyngitis [common cold]. - Condition is Stable. - Discharge Instructions: Cool Mist Vaporizers, Upper Respiratory Infection, Adult, Sdmo-rp-Fdjm, Viral Infections, Tnqz-Ag-Ycok. - Medication Reconciliation, Local Pharmacy Hours form. - Follow up: [facility]; When: Call to arrange an appointment; Reason: Further diagnostic work-up, Recheck today's complaints, Continuance of care. - Problem is new. - Symptoms are unchanged. Historical: - Allergies: no known allergies; - Home Meds: 1. nortriptyline 25 mg Oral cap 1 cap nightly 2. Lexapro 20 mg Oral tab once daily - PMHx: Cardiomyopathy; Hypertension; - PSHx: Cesearean Section; Hernia repair- Umbilical; - Social history: Smoking status: Patient uses tobacco products, light tobacco smoker. No barriers to communication noted, The patient speaks fluent Danish. - Family history: Not pertinent. - : The pt / caregiver states he / she is not on anticoagulants. Home medication list is obtained from the patient. - Exposure Risk Screening:: None identified. 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 7 in. (170.18 cm) (R); Pain 5/10; 20:17 Body Mass Index 32.26 (93.44 kg, 170.18 cm) elp MDM: 21:44 Financial registration complete. [facility] 21:44 REPLACED BY [facility] Payment Agreement was scanned into [employer] and attached to record. 16 05/13 19:19 T-Sheet-- Draft Copy was scanned into [employer] and attached to record. klr Signatures: Mayra PadillaRN RN rs3 Papito Walden PA PA nadyaw Marely Giles LPN LPN Magy Richardson, Reg Reg ks16 Cherise Butler The chart was reviewed and I authenticate all verbal orders and agree with the evaluation and treatment provided.Attachments: 05/12 21:44 [facility] [place] Agreement 05/13 19:19 T-Sheet-- Draft Copy klr Chart Complete MTDD
--- NOTE | 2016-05-14 22:45 | EDDOCDS ---
Physician Documentation [facility] Name: Annia Pete Age: 30 yrs Sex: Female : 1985 Arrival Date: 05/12/2016 Time: 20:15 Bed Triage 3 Private MD: [facility] Disposition: 05/12/16 21:38 Discharged to Home/Self Care. Impression: Acute nasopharyngitis [common cold]. - Condition is Stable. - Discharge Instructions: Cool Mist Vaporizers, Upper Respiratory Infection, Adult, Zsft-mm-Fkrl, Viral Infections, Fdyx-Ip-Esob. - Medication Reconciliation, Local Pharmacy Hours form. - Follow up: [facility]; When: Call to arrange an appointment; Reason: Further diagnostic work-up, Recheck today's complaints, Continuance of care. - Problem is new. - Symptoms are unchanged. Historical: - Allergies: no known allergies; - Home Meds: 1. nortriptyline 25 mg Oral cap 1 cap nightly 2. Lexapro 20 mg Oral tab once daily - PMHx: Cardiomyopathy; Hypertension; - PSHx: Cesearean Section; Hernia repair- Umbilical; - Social history: Smoking status: Patient uses tobacco products, light tobacco smoker. No barriers to communication noted, The patient speaks fluent Bulgarian. - Family history: Not pertinent. - : The pt / caregiver states he / she is not on anticoagulants. Home medication list is obtained from the patient. - Exposure Risk Screening:: None identified. 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 7 in. (170.18 cm) (R); Pain 5/10; 20:17 Body Mass Index 32.26 (93.44 kg, 170.18 cm) elp MDM: 21:[address] [facility] 21:44 [facility] Payment Agreement was scanned into [employer] and attached to record. 16 05/13 19:19 T-Sheet-- Draft Copy was scanned into [employer] and attached to record. klr Signatures: Mayra PadillaRN RN rs3 Papito Walden PA PA nadyaw Marely Giles LPN LPN Magy Richardson, Reg Reg ks16 Cherise Butler The chart was reviewed and I authenticate all verbal orders and agree with the evaluation and treatment provided.Attachments: 05/12 21:44 [facility] Payment Agreement 05/13 19:19 T-Sheet-- Draft Copy klr Chart Complete MTDD
--- NOTE | 2016-05-14 22:45 | EDDOCDS ---
Nurse's Notes [facility] Name: Annia Pete Age: 30 yrs Sex: Female : 1985 Arrival Date: 05/12/2016 Time: 20:15 Bed Triage 3 Private MD: [facility] Diagnosis: Acute nasopharyngitis [common cold] Presentation: 05/12 20:23 Presenting complaint: Patient states: chest congestion for 3 days. Adult Sepsis rs3 Screening: The patient does not have new or worsening altered mentation. Patient's respiratory rate is less than 22. Systolic blood pressure is greater than 100. Patient has a qSOFA score of 0- Negative Sepsis Screen. Suicide/Homicide risk assessment- the patient denies having any suicidal and/or homicidal ideations and does not present with any other emotional, behavioral or mental health complaints. Status: Patient is not a visitor services information assistant or dependent. Transition of care: patient was not received from another setting of care. 20:23 Acuity: ILEANA Level 4 rs3 20:23 Method Of Arrival: Walkin/Carried/Asstd rs3 Triage Assessment: 20:24 General: Appears in no apparent distress. Pain: Denies pain. HIV screening NA for this rs3 visit Offered previously. Respiratory: Onset: The symptoms/episode began/occurred gradually. 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 nortriptyline 25 mg Oral cap 1 cap nightly 2. Lexapro 20 mg Oral tab once daily - PMHx: Cardiomyopathy; Hypertension; - PSHx: Cesearean Section; Hernia repair- Umbilical; - Social history: Smoking status: Patient uses tobacco products, light tobacco smoker. No barriers to communication noted, The patient speaks fluent Croatian. - Family history: Not pertinent. - : The pt / caregiver states he / she is not on anticoagulants. Home medication list is obtained from the patient. - Exposure Risk Screening:: None identified. Screenin:42 Screening information is obtained from the patient. Fall risk: No risks identified. slm Assistance ADL's: requires no assistance with activities of daily living. Abuse/DV Screen: The patient / caregiver reports he/she is: not in a situation that causes fear, pain or injury. Nutritional screening: No deficits noted. Advance Directives: Currently, there is no health care proxy. There is no active DNR order. There is no living will. There is no Power of Seafood Team Member. Advance directive information has not previously been placed in an [facility] medical record. home support is adequate. Assessment: 21:42 General: Appears in no apparent distress, comfortable, Behavior is appropriate for age. slm General: pt c/o cough x 3 days . Respiratory: Airway is patent Respiratory effort is even, unlabored. Derm: Skin is pink, warm & dry. Vital Signs: 20:17 BP 120 / 83; Pulse 95; Resp 18; Temp 99.1(O); Pulse Ox 100% on R/A; Weight 93.44 kg elp (R); Height 5 ft. 7 in. (170.18 cm) (R); Pain 5/10; 20:17 Body Mass Index 32.26 (93.44 kg, 170.18 cm) elp Vitals: 20:17 Log In Time: May 12, 2016 at 20:15. elp ED Course: 20:16 Patient visited by Neli Real PCA. elp 20:16 Patient moved to Waiting elp 20:17 [facility] is Private Physician. elp 20:18 Patient visited by Neli Real PCA. elp 20:18 Patient moved to Pre RCE elp 20:23 Triage Initiated rs3 21:03 Patient moved to Triage 3 ct3 21:10 [facility]den [facility]. btw 21:10 Damian Mays DO is Attending Physician. btw 21:10 Patient visited by Papito Walden PA. btw 21:38 [facility] is Referral Physician. btw 21:42 No IV's were initiated during this patient's visit. No procedures done that require slm assistance. 21:43 Patient visited by Marely Giles LPN. slm 21:43 The patient / caregiver is instructed regarding the plan of care and ED course. Patient slm has correct armband on for positive identification. Bed in low position. 21:44 [facility] Payment Agreement was scanned into [employer] and attached to record. [id number] 05/13 19:19 T-Sheet-- Draft Copy was scanned into [employer] and attached to record. klr Order Results: There are currently no results for this order. Outcome: 05/12 21:38 Discharge ordered by Provider. btw 21:43 Discharge Assessment: Patient awake, alert and oriented x 3. No cognitive and/or slm functional deficits noted. Patient verbalized understanding of disposition instructions. patient administered narcotics - no. The following High Risk Discharge criteria are identified: None. Discharged to home ambulatory. Condition: good. Discharge instructions given to patient, Instructed on discharge instructions, follow up and referral plans. Demonstrated understanding of instructions, Pt was receptive of discharge instructions/ teaching. No special radiology studies were completed. Property :Personal belongings accompany Pt. 21:43 Patient left the ED. slm Signatures: Mayra Padilla,RN RN rs3 Papito Walden, LACI PA btw Kimberly Xie, EXPLOSIVE ORDNANCE TECHNICIAN EXPLOSIVE ORDNANCE TECHNICIAN ct3 Neli Real, EXPLOSIVE ORDNANCE TECHNICIAN EXPLOSIVE ORDNANCE TECHNICIAN elp Marely Giles,SENIOR TAX ANALYST SENIOR TAX ANALYST m Magy Rock, Reg Reg ks16 Cherise Butler Chart Complete [facility]
== END 2016-05-12 21:43 | disposition home or self-care (01) ==
LOC: M ED 20:15
DX: J00 Acute nasopharyngitis [common cold] (principal); B34.9 Viral infection, unspecified; I10 Essential (primary) hypertension; I42.9 Cardiomyopathy, unspecified; F17.200 Nicotine dependence, unspecified, uncomplicated; Z79.899 Other long term (current) drug therapy

== ENCOUNTER → 2016-07-02 | Outpatient (CLI) | payer OTHER ==
--- NOTE | 2016-07-02 14:33 | REP ---
Clinical: Follow up ovarian cyst. Comparison: 04/28/2016. Technique: Transabdominal pelvic ultrasound followed by transvaginal examination for better evaluation of the endometrium and adnexa with color Doppler evaluation of the ovaries. Findings: Heterogeneous anteverted uterus measures 8.0 x 3.8 x 4.0 cm and appears essentially normal. The endometrial complex measures 6.2 mm thickness. The right ovary is normal in appearance and vascularity without torsion and the previously noted 2.7 cm hemorrhagic cyst has resolved. Right kidney measures 2.5 x 2.3 x 2.0 cm; RI equals 0.49. Left ovary is normal in vascularity without torsion and measures 6.4 x 5.6 x 5.4 cm with a new large 5.3 cm hemorrhagic cyst. RI equals 0.46. Impression: New large hemorrhagic cyst in the left ovary. Previous right hemorrhagic cyst resolved. Normal heterogeneous anteverted ureters. Signed by Sandoval Madera MD 07/02/2016 02:25 P
== END ==
LOC: M RAD 13:49
PROVIDERS: ATTEND Obstetrics & Gynecology
DX: N83.292 Other ovarian cyst, left side (principal)

== ENCOUNTER 2016-08-13 19:20 | Emergency (ER) | payer OTHER ==
[~2016-08-13] VITALS: Ht 170.2 cm; Wt 93.4 kg
[~2016-08-13 19:20] MED LIST changes: +NORC1TAB4 PO; -NORC5TAB PO
[2016-08-13] MEDS ORDERED: no meds (19:34)
[2016-08-13] MEDS ORDERED: diphenhydrAMINE INJ 50MG/ML VIAL (J1200) IV STA (19:46)
[2016-08-13] MEDS ORDERED: KETOROLAC 30 MG/ML VIAL (J1885) IV ONE (20:00)
[2016-08-13] MEDS ORDERED: NS 1,000 ML IV ONE (20:00)
[2016-08-13] MEDS ORDERED: METOCLOPRAMIDE INJ 10MG/2ML VIAL (J2765) IV ONE (20:00)
[2016-08-13] MEDS ORDERED: MORPHINE 4 MG/ML 1ML SYRINGE IV ONE (21:15)
[2016-08-13 22:30] VITALS: BP 101/58
== END 2016-08-13 22:33 | disposition home or self-care (01) ==
LOC: M ED 20:00
DX: G43.119 Migraine with aura, intractable, without status migrainosus (principal); D50.9 Iron deficiency anemia, unspecified; Z88.5 Allergy status to narcotic agent; Z88.8 Allergy status to other drugs, medicaments and biological substances; Z91.040 Latex allergy status
CPT/HCPCS: 96374; 96375; 99282; J1200; J1885; J2765

== ENCOUNTER → 2016-11-07 | Outpatient (CLI) | payer OTHER ==
[~2016-11-07] MED LIST changes: +IBUP-1022 PO; -IBUP600T26 PO; +PERC5TAB12 PO; -PERC5TAB6 PO; +no meds
--- NOTE | 2016-11-07 15:28 | REP ---
BILATERAL DIAGNOSTIC MAMMOGRAPHY WITH BILATERAL BREAST ULTRASOUND: Bilateral mammogram is performed in the MLO and CC projections. There are no prior studies for comparison. Patient reports history of a lump in the upper outer quadrant of each breast. These are marked on the skin with triangular skin markers. There is mild scattered fibroglandular tissue. There is no evidence of a mass or architectural distortion. No clustered microcalcifications are seen. Real-time sonographic evaluation of bilateral breasts performed at the site of the reported palpable abnormalities in the upper outer quadrant of each breast. No cystic or solid nodule is seen. IMPRESSION: ACR 2 benign. No mass or clustered microcalcifications. There is no mammographic or sonographic evidence of a mass at the site of the reported palpable abnormality in the upper outer quadrant of each breast. A negative mammogram and ultrasound should not deter biopsy if here is a clinically suspicious palpable mass present. Clinical correlation and followup recommended. This mammogram was interpreted with the aid of an FDA-approved computer-aided detection system. The patient states she/he had a clinical breast exam in 10/2016. The patient letter being requested is M2. Signed by Lucio Herrera MD 11/08/2016 05:52 P
== END ==
LOC: M RAD 12:52
PROVIDERS: ATTEND Obstetrics & Gynecology
DX: N63 Unspecified lump in breast (principal)
CPT/HCPCS: 76642; G0204

== ENCOUNTER 2016-11-12 16:32 | Emergency (ER) | payer OTHER ==
[~2016-11-12] VITALS: Ht 172.7 cm; Wt 91.5 kg
[2016-11-12] MEDS ORDERED: KETOROLAC 30 MG/ML VIAL (J1885) IV ONE (17:45)
[2016-11-12] MEDS ORDERED: NS 1,000 ML IV ONE (17:45)
[2016-11-12] MEDS ORDERED: METOCLOPRAMIDE INJ 10MG/2ML VIAL (J2765) IV ONE (17:45)
[2016-11-12] MEDS ORDERED: diphenhydrAMINE INJ 50MG/ML VIAL (J1200) IV ONE (17:45)
[2016-11-12 19:04] VITALS: BP 108/60
== END 2016-11-12 19:05 | disposition home or self-care (01) ==
LOC: M ED 16:32
DX: G43.909 Migraine, unspecified, not intractable, without status migrainosus (principal); R11.0 Nausea; I10 Essential (primary) hypertension; J45.909 Unspecified asthma, uncomplicated; F32.9 Major depressive disorder, single episode, unspecified; F17.200 Nicotine dependence, unspecified, uncomplicated; Z87.442 Personal history of urinary calculi; Z88.5 Allergy status to narcotic agent; Z88.8 Allergy status to other drugs, medicaments and biological substances; Z91.040 Latex allergy status
CPT/HCPCS: 96374; 96375; 99283; J1200; J1885; J2765

== ENCOUNTER → 2017-03-26 | Outpatient (CLI) | payer OTHER ==
--- NOTE | 2017-03-29 10:21 | SLEEPHOME ---
DATE OF STUDY: 03/26/2017 ORDERED BY: Nereyda Fregoso NP Diagnostic home sleep testing was performed due to concern for the obstructive sleep apnea syndrome in this patient with symptoms of excessive somnolence and nonrestorative sleep with comorbidity of congestive heart failure. For testing, a NOX-T3 respiratory monitoring device was used. Continuous record was made of pulse, oxygen saturation, airflow, chest and abdominal strain, and body position. 4 hours and 27 minutes of data were reviewed, 4 hours and 3 minutes were marked as time in bed. During the interval marked time in bed, there were only 4 respiratory events identified of 10 seconds in duration or greater for a respiratory event index of 1. The patient's baseline pulse rate was 76. Pulse rate ranged 60 to 104. Baseline saturation 93%. Lowest oxygen saturation 90%. Testing was performed in both the supine and nonsupine positions. IMPRESSION: Normal diagnostic home sleep testing with no evidence for obstructive sleep apnea syndrome demonstrated. RECOMMENDATION: The recording time was brief. If clinical suspicion exists, formal in-laboratory nocturnal polysomnography would be more sensitive for identification of obstructive sleep apnea.
== END ==
LOC: M SLEEP HO 14:18
PROVIDERS: ATTEND Nurse Practitioner Adult Health
DX: G47.30 Sleep apnea, unspecified (principal)

== ENCOUNTER → 2017-04-03 | Outpatient (CLI) | payer OTHER ==
[~2017-04-03] MED LIST changes: +GASTROGRAFIN SOLUTION 30ML (Q9963) As Ordered ONE; +ISOVUE-370 76% 100ML VIAL (Q9967) As Ordered ONE
--- NOTE | 2017-04-03 18:36 | REP ---
Clinical: Left upper quadrant pain. Technique: Axial contrast enhanced images from the lung bases to the pubic symphysis using oral (per protocol) and 100 ml Isovue 370 intravenous contrast material with coronal and sagittal re-formations. Comparison: 02/07/2016. Findings: Lung bases are clear. Visualized heart and pericardium normal. Liver, spleen, pancreas, gallbladder, bilateral adrenal glands and kidneys are normal. The enteric system is without obstruction or acute inflammatory process. Normal terminal ileum and appendix identified in the right lower quadrant. Pelvis demonstrates normal bladder and the age-appropriate uterus/adnexa with evidence for prior tubal ligation. Prior anterior abdominopelvic wall surgery noted. No pelvic fluid or ascites. No significant adenopathy. No obvious mass lesion. Vasculature including abdominal aorta appear normal. Musculoskeletal structures are intact without focal osseous abnormality. Impression: Evidence for prior ventral hernia repair and tubal ligation. No acute abdominopelvic pathology appreciated. Signed by Sandoval Madera MD 04/03/2017 03:27 P
== END ==
LOC: M RAD 14:25
PROVIDERS: ATTEND Surgery
DX: R10.31 Right lower quadrant pain (principal); R93.5 Abnormal findings on diagnostic imaging of other abdominal regions, including retroperitoneum
CPT/HCPCS: 74177; Q9963; Q9967

== ENCOUNTER 2017-05-09 12:07 | Emergency (ER) | payer OTHER ==
[2017-05-09] MEDS: ONDANSETRON 4 MG ORAL DISINTEGRATING TAB (S0181) PO (13:30)
[2017-05-09] MEDS: NORCO, ANEXSIA 5/325MG TABLET (HYDROcodone/ACETAMINOPHEN) PO (13:30)
[2017-05-09 13:55] LABS: BASO % 0.4 % (0.0-1.0); EOS # 0.1 10^3/uL (0.0-0.50); EOS % 0.8 % (0.0-3.0); HEMATOCRIT 38.5 % (36.0-47.0); HEMOGLOBIN 12.3 g/dl (12.0-16.0); IMMATURE GRANULOCYTE % 0.4 % (0-0); LYMPH # 2.3 10^3/uL (1.5-4.5); LYMPH % 32.2 % (24.0-44.0); MEAN CORPUSCULAR HEMOGLOBIN 26.6 pg (27.0-33.0); MEAN CORPUSCULAR HGB CONC 31.9 g/dl (32.0-36.5); MEAN CORPUSCULAR VOLUME 83.3 fl (80.0-96.0); MONO # 0.4 10^3/uL (0.0-0.8); MONO % 5.5 % (0.0-5.0); NEUTROPHILS # 4.3 10^3/uL (1.8-7.7); NEUTROPHILS % 60.7 % (36.0-66.0); PLATELET COUNT, AUTOMATED 241 10^3/uL (150-450); RED BLOOD COUNT 4.62 10^6/uL (4.00-5.40); RED CELL DISTRIBUTION WIDTH 13.6 % (11.5-14.5); WHITE BLOOD COUNT 7.2 10^3/uL (4.0-10.0)
[2017-05-09 13:58] LABS: KETONE, URINE AUTO RFX NEGATIVE (NEGATIVE); LEUKOCYTE ESTERASE UR AUTO RFX NEGATIVE (NEGATIVE); NITRITE, URINE AUTO RFX NEGATIVE (NEGATIVE); RBC, URINE AUTO RFX 0 /HPF (0-3); SPECIFIC GRAVITY UR AUTO RFX 1.004 (1.002-1.035); SQUAM EPITHELIAL CELL UR AURFX 1 /HPF (0-6); WBC, URINE AUTO RFX 0 /HPF (0-3)
[2017-05-09 14:16] LABS: NT-PRO BNP 27 PG/ML (<125)
[2017-05-09 14:18] LABS: ALBUMIN 4.1 GM/DL (3.2-5.2); ALBUMIN/GLOBULIN RATIO 1.24 (1.00-1.93); ALKALINE PHOSPHATASE 94 U/L (45-117); ALT/SGPT 12 U/L (12-78); ANION GAP 6 MEQ/L (8-16); AST/SGOT 13 U/L (7-37); BILIRUBIN,DIRECT < 0.1 MG/DL (0.0-0.2); BILIRUBIN,TOTAL 0.2 MG/DL (0.2-1.0); BLOOD UREA NITROGEN 6 MG/DL (7-18); CALCIUM LEVEL 8.9 MG/DL (8.5-10.1); CARBON DIOXIDE LEVEL 27 MEQ/L (21-32); CHLORIDE LEVEL 108 MEQ/L (98-107); CPK CREATINE PHOSPHOKINASE 80 U/L (26-192); CREATININE FOR GFR 0.65 MG/DL (0.55-1.02); FREE T4 1.13 NG/DL (0.76-1.46); GLOMERULAR FILTRATION RATE > 60.0 (>60); GLUCOSE, FASTING 84 MG/DL (70-100); LIPASE 149 U/L (73-393); POTASSIUM SERUM 3.9 MEQ/L (3.5-5.1); SODIUM LEVEL 141 MEQ/L (136-145); TOTAL PROTEIN 7.4 GM/DL (6.4-8.2); TROPONIN I < 0.02 NG/ML (< 0.10)
[2017-05-09 14:22] LABS: MB/CK RELATIVE INDEX 1.25 (< OR =4)
== END 2017-05-09 14:41 | disposition home or self-care (01) ==
LOC: M ED 12:07
DX: R07.89 Other chest pain (principal); F41.9 Anxiety disorder, unspecified; F17.200 Nicotine dependence, unspecified, uncomplicated; J45.909 Unspecified asthma, uncomplicated; I50.9 Heart failure, unspecified
CPT/HCPCS: 93005

== ENCOUNTER → 2017-05-29 | Outpatient (CLI) | payer OTHER ==
[2017-05-29 07:41] LABS: BASO % 0.5 % (0.0-1.0); EOS # 0.2 10^3/uL (0.0-0.50); EOS % 2.2 % (0.0-3.0); HEMOGLOBIN 11.7 g/dl (12.0-16.0); IMMATURE GRANULOCYTE % 0.3 % (0-3.0); LYMPH # 2.7 10^3/uL (1.5-4.5); LYMPH % 35.4 % (24.0-44.0); MEAN CORPUSCULAR HEMOGLOBIN 26.3 pg (27.0-33.0); MEAN CORPUSCULAR HGB CONC 31.6 g/dl (32.0-36.5); MEAN CORPUSCULAR VOLUME 83.1 fl (80.0-96.0); MONO # 0.5 10^3/uL (0.0-0.8); MONO % 6.5 % (0.0-5.0); NEUTROPHILS # 4.2 10^3/uL (1.8-7.7); NEUTROPHILS % 55.1 % (36.0-66.0); PLATELET COUNT, AUTOMATED 256 10^3/uL (150-450); RED BLOOD COUNT 4.45 10^6/uL (4.00-5.40); RED CELL DISTRIBUTION WIDTH 14.3 % (11.5-14.5); WHITE BLOOD COUNT 7.6 10^3/uL (4.0-10.0)
[2017-05-29 08:28] LABS: ALBUMIN 3.8 GM/DL (3.2-5.2); ALBUMIN/GLOBULIN RATIO 1.27 (1.00-1.93); ALKALINE PHOSPHATASE 87 U/L (45-117); ALT/SGPT 15 U/L (12-78); AMYLASE 50 U/L (25-115); ANION GAP 6 MEQ/L (8-16); AST/SGOT 13 U/L (7-37); BILIRUBIN,TOTAL 0.4 MG/DL (0.2-1.0); BLOOD UREA NITROGEN 10 MG/DL (7-18); CALCIUM LEVEL 8.9 MG/DL (8.5-10.1); CARBON DIOXIDE LEVEL 27 MEQ/L (21-32); CHLORIDE LEVEL 111 MEQ/L (98-107); CREATININE FOR GFR 0.67 MG/DL (0.55-1.30); FREE T4 1.01 NG/DL (0.76-1.46); GLOMERULAR FILTRATION RATE > 60.0 (>60); GLUCOSE, FASTING 89 MG/DL (70-100); LIPASE 129 U/L (73-393); POTASSIUM SERUM 4.3 MEQ/L (3.5-5.1); SODIUM LEVEL 144 MEQ/L (136-145); THYROID STIMULATING HORMONE 0.704 uIU/ML (0.358-3.740); TOTAL PROTEIN 6.8 GM/DL (6.4-8.2)
[2017-05-29 08:29] LABS: CONTROL LINE HPYORI INT CTR LINE PRESENT; H PYLORI QUALITATIVE IgG NEGATIVE (NEGATIVE)
== END ==
LOC: M LAB 06:39
DX: R63.4 Abnormal weight loss (principal); R11.0 Nausea; R10.32 Left lower quadrant pain
CPT/HCPCS: 82150

== ENCOUNTER → 2017-06-26 | Outpatient (CLI) | payer OTHER | LOC: M RAD 17:15 | DX: N92.0 Excessive and frequent menstruation with regular cycle (principal); Z98.890 Other specified postprocedural states | CPT/HCPCS: 76856 ==

== ENCOUNTER 2017-07-11 13:53 | Emergency (ER) | payer OTHER ==
[2017-07-11] MEDS: NORCO, ANEXSIA 5/325MG TABLET (HYDROcodone/ACETAMINOPHEN) PO (17:17)
[2017-07-11] MEDS: BACTRIM 160MG/800MG DS TAB PO (17:17)
[2017-07-11] MEDS: LIDOCAINE 2% MDV 20 ML VIAL SC (17:18)
[2017-07-11 17:32] LABS: KETONE, URINE AUTO RFX NEGATIVE (NEGATIVE); LEUKOCYTE ESTERASE UR AUTO RFX NEGATIVE (NEGATIVE); MUCUS, URINE RFX SMALL (NEGATIVE); NITRITE, URINE AUTO RFX NEGATIVE (NEGATIVE); RBC, URINE AUTO RFX 2 /HPF (0-3); SPECIFIC GRAVITY UR AUTO RFX 1.016 (1.002-1.035); SQUAM EPITHELIAL CELL UR AURFX 11 /HPF (0-6); WBC, URINE AUTO RFX 1 /HPF (0-3)
== END 2017-07-11 18:02 | disposition home or self-care (01) ==
LOC: M ED 13:53
DX: L02.31 Cutaneous abscess of buttock (principal); I10 Essential (primary) hypertension; F32.9 Major depressive disorder, single episode, unspecified; G43.909 Migraine, unspecified, not intractable, without status migrainosus; Z87.442 Personal history of urinary calculi; F17.210 Nicotine dependence, cigarettes, uncomplicated; Z91.040 Latex allergy status; Z88.5 Allergy status to narcotic agent
CPT/HCPCS: 81001

== ENCOUNTER 2017-09-20 22:32 | Emergency (ER) | payer OTHER ==
[2017-09-20] MEDS: diphenhydrAMINE INJ 50MG/ML VIAL (J1200) IV (23:30)
[2017-09-20] MEDS: METOCLOPRAMIDE INJ 10MG/2ML VIAL (J2765) IV (23:30)
[2017-09-20] MEDS: KETOROLAC 30 MG/ML VIAL (J1885) IV (23:30)
[2017-09-20] MEDS: NS 1,000 ML IV (23:30)
== END 2017-09-21 00:56 | disposition home or self-care (01) ==
LOC: M ED 09-21 00:56
DX: G43.909 Migraine, unspecified, not intractable, without status migrainosus (principal); I10 Essential (primary) hypertension; J45.909 Unspecified asthma, uncomplicated; F32.9 Major depressive disorder, single episode, unspecified; Z87.442 Personal history of urinary calculi; F17.200 Nicotine dependence, unspecified, uncomplicated; Z79.899 Other long term (current) drug therapy; Z79.1 Long term (current) use of non-steroidal anti-inflammatories (NSAID); Z88.5 Allergy status to narcotic agent; Z91.040 Latex allergy status
CPT/HCPCS: J1200

== ENCOUNTER 2017-10-01 13:25 | Emergency (ER) | payer OTHER ==
[2017-10-01] MEDS: NORCO, ANEXSIA 5/325MG TABLET (HYDROcodone/ACETAMINOPHEN) PO (14:17)
[2017-10-01] MEDS: ADACEL/BOOSTRIX VACCINE (DIPHTH/PERTUSS/ACELL/TETANUS)0.5ML SYR (90715) IM (14:18)
== END 2017-10-01 14:39 | disposition home or self-care (01) ==
LOC: M ED 13:25
DX: S81.011A Laceration without foreign body, right knee, initial encounter (principal); S80.01XA Contusion of right knee, initial encounter; W01.198A Fall on same level from slipping, tripping and stumbling with subsequent striking against other object, initial encounter; Y92.098 Other place in other non-institutional residence as the place of occurrence of the external cause; F17.200 Nicotine dependence, unspecified, uncomplicated; Z88.5 Allergy status to narcotic agent; Z91.040 Latex allergy status; Z79.899 Other long term (current) drug therapy
CPT/HCPCS: 90715

== ENCOUNTER 2018-01-20 07:29 | Emergency (ER) | payer OTHER ==
[2018-01-20] MEDS: METOCLOPRAMIDE INJ 10MG/2ML VIAL (J2765) IV (08:51)
[2018-01-20] MEDS: diphenhydrAMINE INJ 50MG/ML VIAL (J1200) IV (08:51)
[2018-01-20] MEDS: KETOROLAC 30 MG/ML VIAL (J1885) IV (08:53)
[2018-01-20 09:27] LABS: APPEARANCE, URINE CLEAR (CLEAR); BACTERIA, URINE AUTO NEGATIVE (NEGATIVE); BILIRUBIN, URINE AUTO NEGATIVE (NEGATIVE); BLOOD, URINE BLOOD NEGATIVE (NEGATIVE); COLOR, URINE STRAW (YELLOW); GLUCOSE, URINE (UA) AUTO NEGATIVE (NEGATIVE); KETONE, URINE AUTO NEGATIVE (NEGATIVE); LEUKOCYTE ESTERASE, URINE AUTO NEGATIVE (NEGATIVE); NITRITE, URINE AUTO NEGATIVE (NEGATIVE); PROTEIN, URINE AUTO NEGATIVE (NEGATIVE); RBC, URINE AUTO 0 /HPF (0-3); SPECIFIC GRAVITY URINE AUTO 1.001 (1.002-1.035); SQUAMOUS EPITHELIAL CELL UR AU 1 /HPF (0-6); UROBILINOGEN, URINE AUTO 0.2 mg/dL (0.0-2.0); WBC, URINE AUTO 0 /HPF (0-3)
== END 2018-01-20 12:02 | disposition home or self-care (01) ==
LOC: M ED 07:29
DX: G43.709 Chronic migraine without aura, not intractable, without status migrainosus (principal); R39.15 Urgency of urination; F17.200 Nicotine dependence, unspecified, uncomplicated; Z88.5 Allergy status to narcotic agent; Z91.040 Latex allergy status
CPT/HCPCS: J1200

== ENCOUNTER → 2018-01-27 | Outpatient (CLI) | payer OTHER ==
[2018-01-27 12:52] LABS: BASO # 0.1 10^3/uL (0.0-0.2); BASO % 0.8 % (0.0-1.0); EOS # 0.1 10^3/uL (0.0-0.50); EOS % 1.8 % (0.0-3.0); HEMATOCRIT 41.4 % (36.0-47.0); HEMOGLOBIN 12.9 g/dl (12.0-15.5); IMMATURE GRANULOCYTE % 0.4 % (0-3.0); LYMPH # 2.6 10^3/uL (1.5-4.5); LYMPH % 35.8 % (24.0-44.0); MEAN CORPUSCULAR HEMOGLOBIN 27.4 pg (27.0-33.0); MEAN CORPUSCULAR HGB CONC 31.2 g/dl (32.0-36.5); MEAN CORPUSCULAR VOLUME 87.9 fl (80.0-96.0); MONO # 0.4 10^3/uL (0.0-0.8); MONO % 5.4 % (0.0-5.0); NEUTROPHILS % 55.8 % (36.0-66.0); PLATELET COUNT, AUTOMATED 209 10^3/uL (150-450); RED BLOOD COUNT 4.71 10^6/uL (4.00-5.40); RED CELL DISTRIBUTION WIDTH 14.2 % (11.5-14.5); WHITE BLOOD COUNT 7.2 10^3/uL (4.0-10.0)
[2018-01-27 13:34] LABS: ALBUMIN 4.1 GM/DL (3.2-5.2); ALBUMIN/GLOBULIN RATIO 1.37 (1.00-1.93); ALKALINE PHOSPHATASE 85 U/L (45-117); ALT/SGPT 16 U/L (12-78); ANION GAP 6 MEQ/L (8-16); AST/SGOT 10 U/L (7-37); BILIRUBIN,TOTAL 0.2 MG/DL (0.2-1.0); BLOOD UREA NITROGEN 7 MG/DL (7-18); CALCIUM LEVEL 9.4 MG/DL (8.5-10.1); CARBON DIOXIDE LEVEL 28 MEQ/L (21-32); CHLORIDE LEVEL 107 MEQ/L (98-107); CONTROL LINE HCG INT CTR LINE PRESENT; CREATININE FOR GFR 0.68 MG/DL (0.55-1.30); GLOMERULAR FILTRATION RATE > 60.0 (>60); GLUCOSE, FASTING 91 MG/DL (70-100); HCG, SERUM QUALITATIVE NEGATIVE (NEGATIVE); POTASSIUM SERUM 4.4 MEQ/L (3.5-5.1); SODIUM LEVEL 141 MEQ/L (136-145); THYROID STIMULATING HORMONE 0.481 uIU/ML (0.358-3.740); TOTAL PROTEIN 7.1 GM/DL (6.4-8.2)
== END ==
LOC: M LAB 11:57
DX: N92.0 Excessive and frequent menstruation with regular cycle (principal)
CPT/HCPCS: 84443

== ENCOUNTER 2018-02-14 19:01 | Emergency (ER) | payer OTHER ==
[2018-02-14] MEDS: IPRATROPIUM 0.5MG/ALBUTEROL 2.5MG INH SOL UD 3ML (DUONEB)(J7620) NEB (20:09)
[2018-02-14 20:24] LABS: BASO % 0.4 % (0.0-1.0); EOS # 0.1 10^3/uL (0.0-0.50); EOS % 1.5 % (0.0-3.0); HEMATOCRIT 37.3 % (36.0-47.0); HEMOGLOBIN 12.2 g/dl (12.0-15.5); IMMATURE GRANULOCYTE % 0.3 % (0-3.0); LYMPH # 3.2 10^3/uL (1.5-4.5); LYMPH % 33.6 % (24.0-44.0); MEAN CORPUSCULAR HEMOGLOBIN 27.7 pg (27.0-33.0); MEAN CORPUSCULAR HGB CONC 32.7 g/dl (32.0-36.5); MEAN CORPUSCULAR VOLUME 84.6 fl (80.0-96.0); MONO # 0.6 10^3/uL (0.0-0.8); MONO % 6.6 % (0.0-5.0); NEUTROPHILS # 5.5 10^3/uL (1.8-7.7); NEUTROPHILS % 57.6 % (36.0-66.0); PLATELET COUNT, AUTOMATED 206 10^3/uL (150-450); RED BLOOD COUNT 4.41 10^6/uL (4.00-5.40); RED CELL DISTRIBUTION WIDTH 14.3 % (11.5-14.5); WHITE BLOOD COUNT 9.5 10^3/uL (4.0-10.0)
[2018-02-14 20:51] LABS: ANION GAP 6 MEQ/L (8-16); BLOOD UREA NITROGEN 10 MG/DL (7-18); C REACTIVE PROTEIN QUANTITATIV < 0.30 MG/DL (0.00-0.30); CALCIUM LEVEL 8.9 MG/DL (8.5-10.1); CARBON DIOXIDE LEVEL 24 MEQ/L (21-32); CHLORIDE LEVEL 111 MEQ/L (98-107); CK-MB VALUE MASS < 1.0 NG/ML (<3.6); CPK CREATINE PHOSPHOKINASE 71 U/L (26-192); CREATININE FOR GFR 0.68 MG/DL (0.55-1.30); GLOMERULAR FILTRATION RATE > 60.0 (>60); GLUCOSE, FASTING 105 MG/DL (70-100); MB/CK RELATIVE INDEX 1.41 (< OR =4); POTASSIUM SERUM 3.8 MEQ/L (3.5-5.1); SODIUM LEVEL 141 MEQ/L (136-145); TROPONIN I < 0.02 NG/ML (< 0.10)
[2018-02-14] MEDS: ACETAMINOPHEN 325 MG TAB PO (20:55)
[2018-02-14 21:32] LABS: ERYTHROCYTE SEDIMENTATION RATE 11 mm/hr (0-20)
[2018-02-14 21:33] LABS: D-DIMER QUANT < 270.0 ng/ml (<500)
== END 2018-02-14 22:09 | disposition home or self-care (01) ==
LOC: M ED 19:01
DX: J06.9 Acute upper respiratory infection, unspecified (principal); Z72.0 Tobacco use; Z88.5 Allergy status to narcotic agent; Z91.040 Latex allergy status
CPT/HCPCS: 71046

== ENCOUNTER 2018-04-01 07:32 | Emergency (ER) | payer OTHER | END 2018-04-01 08:27 | disposition home or self-care (01) | LOC: M ED 07:32 | DX: K13.70 Unspecified lesions of oral mucosa (principal); G43.909 Migraine, unspecified, not intractable, without status migrainosus; I50.9 Heart failure, unspecified; J45.909 Unspecified asthma, uncomplicated; Z87.442 Personal history of urinary calculi; Z72.0 Tobacco use; Z79.899 Other long term (current) drug therapy; Z91.040 Latex allergy status; Z88.5 Allergy status to narcotic agent | CPT/HCPCS: 87252 ==

== ENCOUNTER → 2018-05-05 | Outpatient (CLI) | payer OTHER ==
[~2018-05-05] MED LIST changes: +AMOX875T PO; +BACT800T5 PO; +BENZ200C70 PO; +BUPR15TA PO; +BUTACAP4; -GASTROGRAFIN SOLUTION 30ML (Q9963) As Ordered ONE; -ISOVUE-370 76% 100ML VIAL (Q9967) As Ordered ONE; -LASI40TA PO; +LASI40TA9 PO; +LEXA1TAB PO; -LISI2.5T3 PO; +LISI2.5T5 PO; +MUCI600T37 PO; +NAPR-50 PO; +NORCOTAB PO; +PROP80TA PO; +TYLE500T78 PO; +VENTAER; +VENTAER INH
[2018-05-05 17:52] LABS: RUBELLA IgG QUALITATIVE IMMUNE (IMMUNE)
[2018-05-07 08:45] LABS: RUBEOLA IgG ANTIBODY 63.3 AU/mL (Immune >29.9)
[2018-05-07 10:47] LABS: MUMPS VIRUS IgG ANTIBODY <9.0 AU/mL (Immune >10.9)
== END ==
LOC: M LAB 16:13
PROVIDERS: ATTEND Physician Assistant
DX: Z01.84 Encounter for antibody response examination (principal)

== ENCOUNTER 2018-05-08 14:45 | Emergency (ER) | payer OTHER ==
[~2018-05-08] VITALS: Ht 167.6 cm; Wt 89.5 kg
[~2018-05-08 14:45] MED LIST changes: -NAPR-50 PO
[2018-05-08 17:20] VITALS: BP 118/70
[2018-05-08] MEDS ORDERED: NAPR-50 PO (18:03)
[2018-05-08] MEDS ORDERED: BENZ200C70 PO (18:03)
== END 2018-05-08 18:10 | disposition home or self-care (01) ==
LOC: M ED 14:45
DX: S29.012A Strain of muscle and tendon of back wall of thorax, initial encounter (principal); X58.XXXA Exposure to other specified factors, initial encounter; Y92.89 Other specified places as the place of occurrence of the external cause; J01.90 Acute sinusitis, unspecified; Z88.5 Allergy status to narcotic agent; Z91.040 Latex allergy status; F17.210 Nicotine dependence, cigarettes, uncomplicated

== ENCOUNTER → 2018-07-22 | Outpatient (CLI) | payer OTHER ==
[~2018-07-22] MED LIST changes: -/LINE60TA; +HYDR-3715 PO; +LISI-1046 PO; -LISI2.5T5 PO; +NAPR-837 PO; -NORC1TAB4 PO; +NORC1TAB7 PO; -NORCOTAB PO; +ZYVO100T
--- NOTE | 2018-07-23 02:34 | REP ---
Clinical: Right foot pain Technique: AP, lateral, bilateral oblique views right foot . Findings: The osseous structures and joint spaces are intact and normal. There is no evidence for acute fracture or dislocation. Surrounding soft tissues are unremarkable. No subcutaneous emphysema or radiodense foreign body. Impression: Normal right foot series . No acute fracture or dislocation. Electronically Signed by Sandoval Madera MD 07/23/2018 02:26 A
== END ==
LOC: M WUC 10:10
PROVIDERS: ATTEND Physician Assistant
DX: M79.671 Pain in right foot (principal)

== ENCOUNTER → 2018-07-26 | Outpatient (CLI) | payer OTHER | LOC: M RAD 10:19 | PROVIDERS: ATTEND Otolaryngology | DX: R22.1 Localized swelling, mass and lump, neck (principal); Z53.9 Procedure and treatment not carried out, unspecified reason ==

== ENCOUNTER 2018-08-07 09:20 | Outpatient (RCR) | payer OTHER | END 2018-08-12 | LOC: M PT 09:20 | PROVIDERS: ATTEND Otolaryngology | DX: M26.69 Other specified disorders of temporomandibular joint (principal) ==

== ENCOUNTER 2018-08-28 09:00 | Outpatient (RCR) | payer OTHER | END 2018-09-12 | LOC: M PT 09:00 | PROVIDERS: ATTEND Otolaryngology | DX: M26.69 Other specified disorders of temporomandibular joint (principal) ==

== ENCOUNTER → 2018-09-16 | Outpatient (CLI) | payer OTHER ==
--- NOTE | 2018-09-18 16:43 | SLEEPHOME ---
DATE OF PROCEDURE: 09/16/2018 ORDERED BY: Dr. Adkins Diagnostic home sleep testing was performed for evaluation of sleep apnea syndrome symptoms in this patient with a history of excessive somnolence and nonrestorative sleep. For testing a nocturnal T3 respiratory monitoring device was used. Continuous record was made of pulse, oxygen saturation, airflow, chest, abdominal strain and body position. 10 hours and 59 minutes of data were reviewed. There were 7 hours and 57 minutes marked as time in bed. During the interval marked time in bed, there were 46 respiratory events identified of 10 seconds in duration or greater for a respiratory event index of 5.5. The events were obstructive and more frequent in the supine posture. Baseline pulse rate 67 beats per minute. Pulse rate ranged 41-103. Baseline saturation 93%, saturations fell to 86%. Testing was performed in both the supine and nonsupine positions. IMPRESSION: Abnormal home sleep testing with repetitive respiratory events and oxygen desaturations to 86% with a respiratory event index of 5.6 is consistent with the obstructive sleep apnea syndrome. RECOMMENDATIONS: Given the occurrence of events related to the supine posture, sleep position retraining for avoidance of the supine posture is recommended. Should the patient's symptoms persist, referral back to the sleep disorder center for pressure therapy could be considered.
== END ==
LOC: M SLEEP HO 09:54
PROVIDERS: ATTEND Internal Medicine Pulmonary Disease
DX: R40.0 Somnolence (principal)

== ENCOUNTER → 2018-09-23 | Outpatient (CLI) | payer OTHER ==
[~2018-09-23] MED LIST changes: +ISOVUE-370 76% 100ML VIAL (Q9967) As Ordered ONE
--- NOTE | 2018-09-24 08:41 | REP ---
CT NECK WITH CONTRAST: HISTORY: Neck mass. CONTRAST: Isovue 370, 75 mL. There is minimal prominence of the tonsils with the right being slightly larger than the left. There is minimal mass effect on the upper oropharynx. The naso- and hypopharynx, larynx and subglottic trachea are normal in appearance. The salivary and thyroid glands are normal in size and density. An enlarged lymph node 1.2 cm in width is present in the right internal jugular chain at the level of the de- and hypopharynx. An enlarged lymph node 1.1 cm in width is present in the left internal jugular chain at the level of the de- and hypopharynx. Small lymph nodes less than 1 cm in size are present in the posterior triangles submandibular and submental areas. The lung apices are clear. The visualized sinuses are clear. IMPRESSION: There is minimal prominence of the tonsils with the right being slightly larger than the left. There is minimal mass effect on the upper oropharynx. There are two slightly enlarged lymph nodes in the internal jugular chains as described above. Electronically Signed by Judah Fontana MD 09/24/2018 08:44 A
== END ==
LOC: M RAD 16:48
PROVIDERS: ATTEND Otolaryngology
DX: R59.0 Localized enlarged lymph nodes (principal); J35.1 Hypertrophy of tonsils
CPT/HCPCS: 70491; Q9967

== ENCOUNTER → 2018-10-08 | Outpatient (CLI) | payer OTHER ==
[~2018-10-08] MED LIST changes: -ISOVUE-370 76% 100ML VIAL (Q9967) As Ordered ONE
--- NOTE | 2018-10-08 12:31 | REP ---
Clinical: Pain. Technique: AP, lateral, bilateral oblique views of the right foot. Findings: Osseous structures, joint spaces, and surrounding soft tissues are normal for age. No acute fracture dislocation. No subcutaneous emphysema or radiodense foreign body. Impression: Normal right foot radiographs. Electronically Signed by Sandoval Madera MD 10/08/2018 12:21 P
== END ==
LOC: M RAD 11:54
PROVIDERS: ATTEND Physician Assistant
DX: M25.571 Pain in right ankle and joints of right foot (principal)

== ENCOUNTER 2018-11-27 15:37 | Emergency (ER) | payer OTHER ==
[~2018-11-27] VITALS: Ht 167.6 cm; Wt 97.7 kg
[2018-11-27 15:38] VITALS: BP 113/63
[2018-11-27] MEDS ORDERED: OMEP-221 (15:42)
[2018-11-27] MEDS ORDERED: BUPR75TA5 (15:42)
[2018-11-27] MEDS ORDERED: IBUP-1022 PO (17:38)
[2018-11-27] MEDS ORDERED: METH1TAB40 PO (17:38)
[2018-11-27] MEDS ORDERED: IBUPROFEN 600 MG TAB PO ONE (17:45)
== END 2018-11-27 17:53 | disposition home or self-care (01) ==
LOC: M ED 15:37
DX: S16.1XXA Strain of muscle, fascia and tendon at neck level, initial encounter (principal); S13.9XXA Sprain of joints and ligaments of unspecified parts of neck, initial encounter; X50.0XXA Overexertion from strenuous movement or load, initial encounter; Y92.89 Other specified places as the place of occurrence of the external cause; Y93.F9 Activity, other caregiving; Y99.0 Civilian activity done for income or pay; G43.909 Migraine, unspecified, not intractable, without status migrainosus; Z79.899 Other long term (current) drug therapy; Z88.5 Allergy status to narcotic agent; Z91.040 Latex allergy status

== ENCOUNTER 2019-03-16 18:26 | Emergency (ER) | payer OTHER, SELFPAY ==
[~2019-03-16] VITALS: Ht 167.6 cm; Wt 95.5 kg
[~2019-03-16 18:26] MED LIST changes: +BUPR75TA5; +METH1TAB40 PO; +OMEP-221
[2019-03-16 18:27] VITALS: BP 135/85
[2019-03-16] MEDS ORDERED: MELO7.5T35 (18:32)
== END 2019-03-16 20:20 | disposition home or self-care (01) ==
LOC: M ED 18:26
DX: G89.29 Other chronic pain (principal); M79.604 Pain in right leg; M79.605 Pain in left leg; Z86.69 Personal history of other diseases of the nervous system and sense organs; F17.210 Nicotine dependence, cigarettes, uncomplicated; Z88.5 Allergy status to narcotic agent; Z91.040 Latex allergy status; Z79.83 Long term (current) use of bisphosphonates; Z79.899 Other long term (current) drug therapy

== ENCOUNTER 2020-04-02 11:28 | Emergency (ER) | payer OTHER, SELFPAY ==
[~2020-04-02] VITALS: Ht 170.2 cm; Wt 104.0 kg
[~2020-04-02 11:28] MED LIST changes: +LABE100T4 PO; -LABE10TAB PO; -LISI-1046 PO; +LISI2.5T2 PO; +MELO7.5T35
[2020-04-02] MEDS ORDERED: BUPR150T5 (11:40)
[2020-04-02] MEDS ORDERED: FLUO20CA22 (11:40)
[2020-04-02 12:44] LABS: BASO % 0.4 % (0.0-1.0); EOS # 0.1 10^3/uL (0.0-0.5); EOS % 1.9 % (0.0-3.0); HEMATOCRIT 42.8 % (36.0-47.0); HEMOGLOBIN 13.8 g/dl (12.0-15.5); LYMPH # 2.2 10^3/uL (1.5-5.0); LYMPH % 31.7 % (24.0-44.0); MEAN CORPUSCULAR HEMOGLOBIN 28.4 pg (27.0-33.0); MEAN CORPUSCULAR HGB CONC 32.2 g/dl (32.0-36.5); MEAN CORPUSCULAR VOLUME 88.1 fl (80.0-96.0); MONO # 0.5 10^3/uL (0.0-0.8); MONO % 6.8 % (0.0-5.0); NEUTROPHILS % 58.8 % (36.0-66.0); PLATELET COUNT, AUTOMATED 221 10^3/uL (150-450); RED BLOOD COUNT 4.86 10^6/uL (4.00-5.40); WHITE BLOOD COUNT 6.8 10^3/uL (4.0-10.0)
[2020-04-02 12:52] LABS: RSV AMPLIFICATION NEGATIVE (NEGATIVE)
[2020-04-02 12:55] LABS: INR 0.9; PROTHROMBIN TIME 12.3 SECONDS (12.5-14.3)
[2020-04-02 12:56] LABS: ALBUMIN 3.8 GM/DL (3.2-5.2); ALT/SGPT 17 U/L (12-78); BILIRUBIN,DIRECT < 0.1 MG/DL (0.0-0.2); BILIRUBIN,TOTAL 0.4 MG/DL (0.2-1.0); BLOOD UREA NITROGEN 10 MG/DL (7-18); CALCIUM LEVEL 8.7 MG/DL (8.5-10.1); CARBON DIOXIDE LEVEL 24 MEQ/L (21-32); CHLORIDE LEVEL 109 MEQ/L (98-107); CK-MB VALUE MASS < 1.0 NG/ML (<3.6); CPK CREATINE PHOSPHOKINASE 112 U/L (26-192); GLOMERULAR FILTRATION RATE > 60.0 (>60); GLUCOSE, FASTING 83 MG/DL (70-100); LIPASE 91 U/L (73-393); MB/CK RELATIVE INDEX 0.89 (< OR =4); NT-PRO BNP 17 PG/ML (<125); PARTIAL THROMBOPLASTIN TIME 33.3 SECONDS (24.2-38.5); POTASSIUM SERUM 4.4 MEQ/L (3.5-5.1); SODIUM LEVEL 140 MEQ/L (136-145); THYROID STIMULATING HORMONE 0.496 uIU/ML (0.358-3.740); TROPONIN I < 0.02 NG/ML (< 0.10)
[2020-04-02 12:58] LABS: D-DIMER QUANT 346.85 ng/ml (<500)
[2020-04-02 13:08] LABS: ERYTHROCYTE SEDIMENTATION RATE 8 mm/hr (0-20)
[2020-04-02 13:31] LABS: HCG, SERUM QUALITATIVE NEGATIVE (NEGATIVE)
--- NOTE | 2020-04-02 13:58 | REP ---
INDICATION: CHEST PAIN COMPARISON: 02/14/2018 TECHNIQUE: Portable AP view of the chest FINDINGS: The mediastinum and cardiac silhouette are stable and within normal limits for portable technique. The lung lamb are clear without acute consolidation, effusion, or pneumothorax. Skeletal structures are intact. IMPRESSION: No acute cardiopulmonary process appreciated. <Electronically signed by Sandoval Madera > 04/02/20 0223
[2020-04-02] MEDS ORDERED: ISOVUE-370 76% 100ML VIAL As Ordered ONE (14:02)
--- NOTE | 2020-04-02 14:35 | REP ---
INDICATION: chest pain, left upper COMPARISON: 01/09/2015 TECHNIQUE: Axial contrast enhanced images from the thoracic inlet to the upper abdomen using pulmonary embolus technique with multiplanar re-formations. 100 ml Isovue 370 intravenous contrast material administered without complication. This CT examination was performed using the following dose reduction techniques: Automated exposure control, adjustment of mA and/or kv according to the patient's size, and use of iterative reconstruction technique. FINDINGS: Satisfactory enhancement of the pulmonary vasculature is achieved and no filling defects are identified to suggest pulmonary embolus. Further evaluation of the mediastinum demonstrates normal thoracic aorta, heart and pericardium. The bilateral lung lamb are well aerated and clear without consolidation pleural effusion or pneumothorax. Tracheobronchial tree is patent. No nodule or mass lesion is identified. No adenopathy noted. Surrounding musculoskeletal structures intact IMPRESSION: No evidence for pulmonary embolus. No acute mediastinal or pleural parenchymal process. <Electronically signed by Sandoval Madera > 04/02/20 [id number]
--- NOTE | 2020-04-02 14:38 | REP ---
INDICATION: epigastric pain. COMPARISON: 04/03/2017 TECHNIQUE: Axial contrast-enhanced images from the lung bases to the pubic symphysis using 100 cc Isovue 370 intravenous contrast material. Coronal and sagittal reformations obtained. This CT examination was performed using the following dose reduction techniques: Automated exposure control, adjustment of mA and/or kv according to the patient's size, and the use of iterative reconstruction technique. FINDINGS: Liver, spleen, pancreas, gallbladder, bilateral adrenal glands and kidneys are normal. Incidental subcentimeter left renal hypodensities likely represent cysts and may be followed by ultrasound as necessary. The enteric system including stomach, small, and large bowel appears normal. No evidence for obstruction or acute inflammatory process. Normal terminal ileum and appendix are identified in the right lower quadrant. Pelvis demonstrates normal bladder and age-appropriate uterus/adnexa. Evidence for prior ventral hernia repair noted. Small stable fat containing umbilical hernia noted. No ascites. No free air. No intraperitoneal or retroperitoneal adenopathy. Abdominal aorta and vasculature appear normal. Musculoskeletal structures are intact and without acute osseous abnormality. IMPRESSION: No acute abdominopelvic pathology appreciated. <Electronically signed by Sandoval Madera > 04/02/20 [id number]
[2020-04-02 16:33] LABS: CK-MB VALUE MASS < 1.0 NG/ML (<3.6); CPK CREATINE PHOSPHOKINASE 76 U/L (26-192); MB/CK RELATIVE INDEX 1.32 (< OR =4); TROPONIN I < 0.02 NG/ML (< 0.10)
[2020-04-02 17:00] VITALS: BP 127/68
[2020-04-02] MEDS ORDERED: KETO10TAB PO (17:02)
[2020-04-02] MEDS ORDERED: OMEP40CA97 PO (17:02)
[2020-04-02] MEDS ORDERED: SUCR1TA PO (17:02)
--- NOTE | 2020-04-03 12:21 | ECGEPIP ---
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
--- NOTE | 2020-04-03 12:23 | ECGEPIP ---
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
== END 2020-04-02 17:33 | disposition home or self-care (01) ==
LOC: M ED 11:28
DX: R07.89 Other chest pain (principal); R06.00 Dyspnea, unspecified; G43.909 Migraine, unspecified, not intractable, without status migrainosus; Z79.899 Other long term (current) drug therapy; Z88.5 Allergy status to narcotic agent; Z91.040 Latex allergy status; F17.210 Nicotine dependence, cigarettes, uncomplicated
CPT/HCPCS: 36415; 71045; 71275; 74177; 80048; 80076; 82550; 82553; 83690; 83880; 84443; 84703; 85025; 85379; 85610; 85652; 85730; 86140; 87040; 87631; 93005; 93041; 94760; 99285; Q9967

== ENCOUNTER → 2020-08-17 | Outpatient (CLI) | payer OTHER ==
[~2020-08-17] MED LIST changes: +BUPR150T5; +FLUO20CA22; +KETO10TAB PO; +METH-1164 PO; -METH1TAB40 PO; +OMEP40CA97 PO; +SUCR1TA PO
--- NOTE | 2020-08-18 06:12 | REP ---
INDICATION: PAIN COMPARISON: None. TECHNIQUE: AP, lateral, bilateral oblique views right hand. FINDINGS: The osseous structures and joint spaces are intact and normal. There is no evidence for acute fracture or dislocation. Surrounding soft tissues are unremarkable. No subcutaneous emphysema or radiodense foreign body. IMPRESSION: . No acute fracture or dislocation. <Electronically signed by Sandoval Madera > 08/18/20 0608
--- NOTE | 2020-08-18 06:13 | REP ---
INDICATION: PAIN COMPARISON: None. TECHNIQUE: AP, lateral, bilateral oblique views right wrist. FINDINGS: The carpal bones, surrounding osseous structures, soft tissues, and joint spaces are normal. There is no evidence for acute fracture or dislocation. No subcutaneous emphysema or radiodense foreign body. IMPRESSION: Normal wrist series. No acute fracture or dislocation. <Electronically signed by Sandoval Madera > 08/18/20 0609
== END ==
LOC: M WUC 14:42
PROVIDERS: ATTEND Physician Assistant
DX: S63.511A Sprain of carpal joint of right wrist, initial encounter (principal); S63.8X1A Sprain of other part of right wrist and hand, initial encounter; X58.XXXA Exposure to other specified factors, initial encounter; Y92.89 Other specified places as the place of occurrence of the external cause; Y93.9 Activity, unspecified; Y99.9 Unspecified external cause status

== ENCOUNTER → 2020-10-26 | Outpatient (CLI) | payer OTHER ==
[~2020-10-26] MED LIST changes: +OMEP40CA4 PO; -OMEP40CA97 PO
[2020-10-26 13:09] LABS: BASO # 0.1 10^3/uL (0.0-0.2); BASO % 0.7 % (0.0-1.0); EOS # 0.2 10^3/uL (0.0-0.5); EOS % 2.2 % (0.0-3.0); HEMATOCRIT 43.2 % (36.0-47.0); HEMOGLOBIN 13.7 g/dl (12.0-15.5); LYMPH # 3.2 10^3/uL (1.5-5.0); LYMPH % 34.9 % (24.0-44.0); MEAN CORPUSCULAR HEMOGLOBIN 28.5 pg (27.0-33.0); MEAN CORPUSCULAR HGB CONC 31.7 g/dl (32.0-36.5); MONO # 0.6 10^3/uL (0.0-0.8); MONO % 6.3 % (2.0-8.0); NEUTROPHILS % 55.2 % (36.0-66.0); PLATELET COUNT, AUTOMATED 205 10^3/uL (150-450)
--- NOTE | 2020-10-26 13:31 | REP ---
INDICATION: PAIN IN LEFT HIP. COMPARISON: None TECHNIQUE: AP and frog-lateral views FINDINGS: The hip joint space is symmetric and relatively well maintained. There is no acute fracture or destructive osseous lesion. IMPRESSION: Within normal limits <Electronically signed by Blair Powell > 10/26/20 [id number]
[2020-10-26 13:38] LABS: ERYTHROCYTE SEDIMENTATION RATE 15 mm/hr (0-20)
[2020-10-26 13:44] LABS: ALT/SGPT 21 U/L (12-78); BILIRUBIN,TOTAL 0.2 MG/DL (0.2-1.0); BLOOD UREA NITROGEN 9 MG/DL (7-18); CARBON DIOXIDE LEVEL 28 MEQ/L (21-32); CHLORIDE LEVEL 109 MEQ/L (98-107); CREATININE FOR GFR 0.69 MG/DL (0.55-1.30); GLOMERULAR FILTRATION RATE > 60.0 (>60); GLUCOSE, FASTING 84 MG/DL (70-100); MAGNESIUM LEVEL 2.2 MG/DL (1.8-2.4); POTASSIUM SERUM 4.7 MEQ/L (3.5-5.1); RHEUMATOID FACTOR QUANT < 10.0 IU/ML (<15.0); SODIUM LEVEL 140 MEQ/L (136-145); THYROID STIMULATING HORMONE 0.809 uIU/ML (0.358-3.740); TOTAL PROTEIN 7.2 GM/DL (6.4-8.2)
[2020-10-26 13:45] LABS: TOTAL 25(OH) VITAMIN D 24.4 NG/ML (30.0-100.0)
[2020-10-27 12:26] LABS: ANTINUCLEAR ANTIBODIES DIRECT Negative (Negative)
== END ==
LOC: M LAB 12:12
PROVIDERS: ATTEND Family Medicine
DX: M79.606 Pain in leg, unspecified (principal)

== ENCOUNTER 2021-01-11 21:08 | Emergency (ER) | payer OTHER ==
[~2021-01-11] VITALS: Ht 170.2 cm; Wt 95.5 kg
[~2021-01-11 21:08] MED LIST changes: -LISI2.5T2 PO; +LISI2.5T9 PO
[2021-01-11] MEDS ORDERED: NS 1,000 ML IV ONE (21:15)
[2021-01-11 22:14] LABS: BASO # 0.1 10^3/uL (0.0-0.2); BASO % 0.6 % (0.0-1.0); EOS # 0.3 10^3/uL (0.0-0.5); EOS % 2.6 % (0.0-3.0); HEMATOCRIT 41.5 % (36.0-47.0); HEMOGLOBIN 13.6 g/dl (12.0-15.5); LYMPH # 3.4 10^3/uL (1.5-5.0); LYMPH % 33.4 % (24.0-44.0); MEAN CORPUSCULAR HEMOGLOBIN 29.2 pg (27.0-33.0); MEAN CORPUSCULAR HGB CONC 32.8 g/dl (32.0-36.5); MEAN CORPUSCULAR VOLUME 89.1 fl (80.0-96.0); MONO # 0.5 10^3/uL (0.0-0.8); NEUTROPHILS # 5.8 10^3/uL (1.5-8.5); NEUTROPHILS % 57.9 % (36.0-66.0); PLATELET COUNT, AUTOMATED 210 10^3/uL (150-450); RED BLOOD COUNT 4.66 10^6/uL (4.00-5.40); WHITE BLOOD COUNT 10.1 10^3/uL (4.0-10.0)
[2021-01-11 22:48] LABS: ALBUMIN 3.7 GM/DL (3.2-5.2); ALT/SGPT 18 U/L (12-78); BILIRUBIN,DIRECT < 0.1 MG/DL (0.0-0.2); BILIRUBIN,TOTAL 0.2 MG/DL (0.2-1.0); CK-MB VALUE MASS < 1.0 NG/ML (<3.6); CPK CREATINE PHOSPHOKINASE 86 U/L (26-192); LIPASE 87 U/L (73-393); MB/CK RELATIVE INDEX 1.16 (< OR =4); TROPONIN I < 0.02 NG/ML (< 0.10)
[2021-01-11 23:04] VITALS: BP 100/67
[2021-01-11] MEDS ORDERED: MORPHINE 2 MG/ML 1ML VIAL (J2270) IV PRN (23:15)
[2021-01-11] MEDS ORDERED: ONDANSETRON 4MG/2ML VIAL IV ONE (23:15)
--- NOTE | 2021-01-12 07:52 | ECGEPIP ---
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
== END 2021-01-11 23:22 | disposition left against medical advice (07) ==
LOC: M ED 21:08
DX: R10.9 Unspecified abdominal pain (principal); Z53.9 Procedure and treatment not carried out, unspecified reason; G43.909 Migraine, unspecified, not intractable, without status migrainosus; Z88.5 Allergy status to narcotic agent; Z91.040 Latex allergy status; F17.200 Nicotine dependence, unspecified, uncomplicated

== ENCOUNTER → 2021-05-23 | Outpatient (CLI) | payer OTHER ==
[~2021-05-23] MED LIST changes: -OMEP-221; +OMEP40CA5
[2021-05-23 11:38] LABS: FREE T4 0.99 NG/DL (0.76-1.46); THYROID STIMULATING HORMONE 0.623 uIU/ML (0.358-3.740)
[2021-05-23 11:39] LABS: TOTAL 25(OH) VITAMIN D 28.1 NG/ML (30.0-100.0)
== END ==
LOC: M LAB 10:21
PROVIDERS: ATTEND Nurse Practitioner Family
DX: F43.23 Adjustment disorder with mixed anxiety and depressed mood (principal)

== ENCOUNTER → 2021-10-17 | Outpatient (CLI) | payer OTHER ==
[~2021-10-17] MED LIST changes: +ALBU2.5V10 INH; -ALBU83IN INH; +BUPR-71; -BUPR150T5
== END ==
LOC: M WUC 12:57
PROVIDERS: ATTEND Physician Assistant
DX: S93.691A Other sprain of right foot, initial encounter (principal); S93.411A Sprain of calcaneofibular ligament of right ankle, initial encounter

== ENCOUNTER → 2022-03-27 | Outpatient (REF) | payer OTHER ==
[~2022-03-27] MED LIST changes: -LABE100T4 PO; +LABE100T6 PO
== END ==
LOC: M LAB REF 17:01
PROVIDERS: ATTEND Nurse Practitioner Family
DX: R30.0 Dysuria (principal)

== ENCOUNTER → 2022-04-02 | Outpatient (CLI) | payer OTHER ==
[2022-04-02 13:19] LABS: BASO # 0.1 10^3/uL (0.0-0.2); BASO % 0.8 % (0.0-1.0); EOS # 0.2 10^3/uL (0.0-0.5); EOS % 2.4 % (0.0-3.0); HEMATOCRIT 42.5 % (36.0-47.0); HEMOGLOBIN 13.5 g/dl (12.0-15.5); LYMPH # 2.4 10^3/uL (1.5-5.0); LYMPH % 38.3 % (24.0-44.0); MEAN CORPUSCULAR HEMOGLOBIN 28.5 pg (27.0-33.0); MEAN CORPUSCULAR HGB CONC 31.8 g/dl (32.0-36.5); MEAN CORPUSCULAR VOLUME 89.7 fl (80.0-96.0); MONO # 0.5 10^3/uL (0.0-0.8); MONO % 7.9 % (2.0-8.0); NEUTROPHILS # 3.2 10^3/uL (1.5-8.5); NEUTROPHILS % 50.3 % (36.0-66.0); PLATELET COUNT, AUTOMATED 198 10^3/uL (150-450); RED BLOOD COUNT 4.74 10^6/uL (4.00-5.40); WHITE BLOOD COUNT 6.3 10^3/uL (4.0-10.0)
[2022-04-02 13:44] LABS: ALBUMIN 3.7 G/DL (3.2-5.2); ALKALINE PHOSPHATASE 84 U/L (46-116); ALT/SGPT 19 U/L (7.0-40); AST/SGOT 23 U/L (<34); BILIRUBIN,TOTAL < 0.2 MG/DL (0.3-1.2); BLOOD UREA NITROGEN 9 MG/DL (9-23); CALCIUM LEVEL 8.9 MG/DL (8.5-10.1); CARBON DIOXIDE LEVEL 26 MMOL/L (20-31); CHLORIDE LEVEL 107 MMOL/L (98-107); GLOMERULAR FILTRATION RATE > 60.0 (>60); GLUCOSE, FASTING 109 MG/DL (60-100); SODIUM LEVEL 140 MMOL/L (136-145); TOTAL PROTEIN 6.6 G/DL (5.7-8.2)
[2022-04-02 13:48] LABS: FREE T4 1.06 NG/DL (0.89-1.76); THYROID STIMULATING HORMONE 0.661 uIU/ML (0.55-4.78); TOTAL 25(OH) VITAMIN D 24.8 NG/ML (20.0-100.0)
== END ==
LOC: M LAB 12:27
PROVIDERS: ATTEND Nurse Practitioner Family
DX: R53.83 Other fatigue (principal)

== ENCOUNTER → 2022-11-16 | Outpatient (CLI) | payer OTHER ==
[2022-11-16 16:15] LABS: ALBUMIN 3.7 G/DL (3.2-5.2); ALKALINE PHOSPHATASE 89 U/L (46-116); ALT/SGPT 12 U/L (7.0-40); AST/SGOT 10 U/L (<34); BILIRUBIN,TOTAL 0.2 MG/DL (0.3-1.2); BLOOD UREA NITROGEN 9 MG/DL (9-23); CALCIUM LEVEL 8.8 MG/DL (8.5-10.1); CARBON DIOXIDE LEVEL 24 MMOL/L (20-31); CHLORIDE LEVEL 107 MMOL/L (98-107); CREATININE FOR GFR 0.64 MG/DL (0.55-1.30); GLOMERULAR FILTRATION RATE > 60.0 (>60); GLUCOSE, FASTING 128 MG/DL (60-100); MAGNESIUM LEVEL 1.7 MG/DL (1.8-2.4); POTASSIUM SERUM 3.8 MMOL/L (3.5-5.1); SODIUM LEVEL 139 MMOL/L (136-145); TOTAL PROTEIN 6.3 G/DL (5.7-8.2)
[2022-11-16 16:30] LABS: HEMOGLOBIN A1c 5.2 % (4.0-6.0)
[2022-11-16 16:32] LABS: FOLATE 19.2 NG/ML (>5.4); FREE T4 0.94 NG/DL (0.89-1.76); THYROID STIMULATING HORMONE 0.818 uIU/ML (0.55-4.78); VITAMIN B12 LEVEL 299 PG/ML (211-911)
== END ==
LOC: M LAB 14:52
PROVIDERS: ATTEND Registered Nurse
DX: E66.9 Obesity, unspecified (principal)

== ENCOUNTER 2023-01-13 21:53 | Emergency (ER) | payer OTHER ==
[~2023-01-13] VITALS: Ht 172.7 cm; Wt 90.9 kg
[2023-01-13 21:55] VITALS: TEMP 97.6
[2023-01-13] MEDS ORDERED: ONDANSETRON 4MG 2ML VIAL IV ONE (23:20)
[2023-01-13] MEDS ORDERED: NS 1,000 ML IV ONE (23:20)
[2023-01-13] MEDS ORDERED: KETOROLAC 30 MG/ML 1ML VIAL IV ONE (23:20)
[2023-01-13 23:51] LABS: BASO # 0.1 10^3/uL (0.0-0.2); BASO % 0.7 % (0.0-1.0); EOS # 0.3 10^3/uL (0.0-0.5); EOS % 2.6 % (0.0-3.0); HEMATOCRIT 39.2 % (36.0-47.0); HEMOGLOBIN 12.8 g/dl (12.0-15.5); LYMPH # 3.7 10^3/uL (1.5-5.0); LYMPH % 36.2 % (24.0-44.0); MEAN CORPUSCULAR HEMOGLOBIN 29.2 pg (27.0-33.0); MEAN CORPUSCULAR HGB CONC 32.7 g/dl (32.0-36.5); MEAN CORPUSCULAR VOLUME 89.3 fl (80.0-96.0); MONO # 0.5 10^3/uL (0.0-0.8); MONO % 5.2 % (2.0-8.0); NEUTROPHILS # 5.7 10^3/uL (1.5-8.5); NEUTROPHILS % 54.8 % (36.0-66.0); PLATELET COUNT, AUTOMATED 224 10^3/uL (150-450); RED BLOOD COUNT 4.39 10^6/uL (4.00-5.40); WHITE BLOOD COUNT 10.3 10^3/uL (4.0-10.0)
[2023-01-14 00:12] LABS: BLOOD UREA NITROGEN 12 MG/DL (9-23); CALCIUM LEVEL 8.5 MG/DL (8.5-10.1); CARBON DIOXIDE LEVEL 26 MMOL/L (20-31); CHLORIDE LEVEL 109 MMOL/L (98-107); CREATININE FOR GFR 0.64 MG/DL (0.55-1.30); GLOMERULAR FILTRATION RATE > 60.0 (>60); GLUCOSE, FASTING 110 MG/DL (60-100); POTASSIUM SERUM 3.7 MMOL/L (3.5-5.1); SODIUM LEVEL 140 MMOL/L (136-145)
[2023-01-14 00:24] LABS: ERYTHROCYTE SEDIMENTATION RATE 10 mm/hr (0-20)
[2023-01-14] MEDS ORDERED: ONDA4TAB6 PO (00:44)
[2023-01-14] MEDS ORDERED: KETO10TAB PO (00:44)
[2023-01-14 00:50] VITALS: BP 111/54; O2SAT 98
== END 2023-01-14 00:52 | disposition home or self-care (01) ==
LOC: M ED 21:53
DX: G43.909 Migraine, unspecified, not intractable, without status migrainosus (principal); F17.200 Nicotine dependence, unspecified, uncomplicated; Z91.040 Latex allergy status; Z88.5 Allergy status to narcotic agent; Z79.899 Other long term (current) drug therapy
CPT/HCPCS: 80048; 85025; 85652; 96374; 96375; 99284; J1885; J2405

== ENCOUNTER 2023-03-31 13:08 | Emergency (ER) | payer OTHER ==
[~2023-03-31] VITALS: Ht 160 cm; Wt 112.1 kg
[~2023-03-31 13:08] MED LIST changes: +ONDA4TAB6 PO
[2023-03-31 16:42] LABS: BASO # 0.1 10^3/uL (0.0-0.2); BASO % 0.6 % (0.0-1.0); EOS # 0.2 10^3/uL (0.0-0.5); EOS % 1.5 % (0.0-3.0); HEMATOCRIT 40.4 % (36.0-47.0); HEMOGLOBIN 13.5 g/dl (12.0-15.5); LYMPH # 3.1 10^3/uL (1.5-5.0); LYMPH % 29.1 % (24.0-44.0); MEAN CORPUSCULAR HEMOGLOBIN 29.3 pg (27.0-33.0); MEAN CORPUSCULAR HGB CONC 33.4 g/dl (32.0-36.5); MEAN CORPUSCULAR VOLUME 87.6 fl (80.0-96.0); MONO # 0.5 10^3/uL (0.0-0.8); MONO % 4.8 % (2.0-8.0); NEUTROPHILS # 6.8 10^3/uL (1.5-8.5); NEUTROPHILS % 63.3 % (36.0-66.0); PLATELET COUNT, AUTOMATED 265 10^3/uL (150-450); RED BLOOD COUNT 4.61 10^6/uL (4.00-5.40); WHITE BLOOD COUNT 10.8 10^3/uL (4.0-10.0)
[2023-03-31 16:50] LABS: ERYTHROCYTE SEDIMENTATION RATE 19 mm/hr (0-20)
[2023-03-31 17:02] LABS: C REACTIVE PROTEIN QUANTITATIV < 0.40 MG/DL (<1.0); CK-MB VALUE MASS < 1.0 NG/ML (<3.6)
[2023-03-31 17:03] LABS: CPK CREATINE PHOSPHOKINASE 64 U/L (34-145); MB/CK RELATIVE INDEX 1.56 (< OR =4)
[2023-03-31 17:04] LABS: ALBUMIN 3.7 G/DL (3.2-5.2); ALKALINE PHOSPHATASE 85 U/L (46-116); ALT/SGPT 18 U/L (7.0-40); AST/SGOT 13 U/L (<34); BILIRUBIN,DIRECT < 0.1 MG/DL (<0.4); BILIRUBIN,TOTAL 0.2 MG/DL (0.3-1.2); BLOOD UREA NITROGEN 10 MG/DL (9-23); CALCIUM LEVEL 8.8 MG/DL (8.5-10.1); CARBON DIOXIDE LEVEL 22 MMOL/L (20-31); CHLORIDE LEVEL 111 MMOL/L (98-107); CREATININE FOR GFR 0.56 MG/DL (0.55-1.30); GLOMERULAR FILTRATION RATE > 60.0 (>60); GLUCOSE, FASTING 92 MG/DL (60-100); SODIUM LEVEL 142 MMOL/L (136-145); TOTAL PROTEIN 6.5 G/DL (5.7-8.2)
[2023-03-31 17:16] LABS: INR 0.91
[2023-03-31 17:17] LABS: PARTIAL THROMBOPLASTIN TIME 33.7 SECONDS (24.8-34.2)
[2023-03-31 18:50] VITALS: BP 118/78; TEMP 98.1; O2SAT 100
== END 2023-03-31 18:54 | disposition home or self-care (01) ==
LOC: M ED 13:08
DX: R60.0 Localized edema (principal); R06.02 Shortness of breath; I10 Essential (primary) hypertension; J45.909 Unspecified asthma, uncomplicated; F32.A Depression, unspecified; G43.909 Migraine, unspecified, not intractable, without status migrainosus; F17.200 Nicotine dependence, unspecified, uncomplicated; Z87.442 Personal history of urinary calculi; Z91.040 Latex allergy status; Z88.5 Allergy status to narcotic agent; Z79.899 Other long term (current) drug therapy

== ENCOUNTER → 2023-07-03 12:55 | Emergency (ER) | payer OTHER | END | disposition left against medical advice (07) | LOC: M ED 12:55 | DX: Z53.21 Procedure and treatment not carried out due to patient leaving prior to being seen by health care provider (principal) ==

== ENCOUNTER → 2023-10-21 | Outpatient (CLI) | payer OTHER ==
[~2023-10-21] MED LIST changes: +FLUO-365; -FLUO20CA22; +ONDA-282 PO; -ONDA4TAB6 PO
== END ==
LOC: M WUC 13:16
PROVIDERS: ATTEND Student in an Organized Health Care Education/Training Program
DX: M79.671 Pain in right foot (principal)

== ENCOUNTER 2023-12-24 19:21 | Emergency (ER) | payer OTHER ==
[~2023-12-24] VITALS: Ht 165.1 cm; Wt 100.0 kg
[2023-12-24 19:23] VITALS: BP 142/84; TEMP 96.9; O2SAT 98
== END 2023-12-24 20:58 | disposition left against medical advice (07) ==
LOC: M ED 19:21
DX: Z53.21 Procedure and treatment not carried out due to patient leaving prior to being seen by health care provider (principal)

== ENCOUNTER → 2024-03-17 | Outpatient (CLI) | payer OTHER ==
[2024-03-17 17:54] LABS: HIV 1&2 SCREEN NEGATIVE (NEGATIVE)
[2024-03-17 19:00] LABS: Trichomonas vaginalis (AMP) NOT DETECTED (NEGATIVE)
[2024-03-17 19:24] LABS: GC DNA AMPLIFICATION NEGATIVE (NEGATIVE)
== END ==
LOC: M WUC 13:33
PROVIDERS: ATTEND Nurse Practitioner Family
DX: N75.0 Cyst of Bartholin's gland (principal); Z11.3 Encounter for screening for infections with a predominantly sexual mode of transmission

== ENCOUNTER → 2024-06-23 | Outpatient (CLI) | payer OTHER ==
[2024-06-23 09:50] LABS: HEMATOCRIT 43.4 % (36.0-47.0); HEMOGLOBIN 14.3 g/dl (12.0-15.5); MEAN CORPUSCULAR HGB CONC 32.9 g/dl (32.0-36.5); PLATELET COUNT, AUTOMATED 247 10^3/uL (150-450); RED BLOOD COUNT 4.77 10^6/uL (4.00-5.40); WHITE BLOOD COUNT 8.1 10^3/uL (4.0-10.0)
[2024-06-23 10:03] LABS: HEMOGLOBIN A1c 5.1 % (4.0-6.0)
[2024-06-23 10:21] LABS: ALBUMIN 3.8 G/DL (3.2-5.2); ALKALINE PHOSPHATASE 89 U/L (35-104); ALT/SGPT 19 U/L (7.0-40); AST/SGOT 15 U/L (<34); BILIRUBIN,TOTAL 0.3 MG/DL (0.3-1.2); BLOOD UREA NITROGEN 11 MG/DL (9-23); CALCIUM LEVEL 9.2 MG/DL (8.5-10.1); CARBON DIOXIDE LEVEL 26 MMOL/L (20-31); CHLORIDE LEVEL 108 MMOL/L (98-107); CHOLESTEROL LEVEL 223 MG/DL (<200); CHOLESTEROL RISK RATIO 4.77 (<5); CREATININE FOR GFR 0.66 MG/DL (0.55-1.30); GLOMERULAR FILTRATION RATE > 60.0 (>60); GLUCOSE, FASTING 82 MG/DL (60-100); HDL CHOLESTEROL 46.7 MG/DL (>40); IRON (FE) 74 UG/DL (50-170); LDL CHOLESTEROL 141.1 MG/DL (<100); NON-HDL-C 176.3 MG/DL; POTASSIUM SERUM 4.6 MMOL/L (3.5-5.1); SODIUM LEVEL 141 MMOL/L (136-145); THYROID STIMULATING HORMONE 0.698 uIU/ML (0.55-4.78); TOTAL 25(OH) VITAMIN D 21.5 NG/ML (20.0-100.0); TOTAL PROTEIN 6.8 G/DL (5.7-8.2); TRIGLYCERIDES LEVEL 176 MG/DL (<150); VITAMIN B12 LEVEL 264 PG/ML (211-911)
== END ==
LOC: M LAB 08:20
PROVIDERS: ATTEND Internal Medicine
DX: Z00.00 Encounter for general adult medical examination without abnormal findings (principal)

== ENCOUNTER 2024-08-10 13:27 | Emergency (ER) | payer OTHER ==
[~2024-08-10] VITALS: Ht 160 cm; Wt 100.5 kg
[2024-08-10 14:49] LABS: BASO # 0.1 10^3/uL (0.0-0.2); BASO % 0.4 % (0.0-1.0); EOS # 0.1 10^3/uL (0.0-0.5); EOS % 0.4 % (0.0-3.0); HEMATOCRIT 43.3 % (36.0-47.0); HEMOGLOBIN 14.1 g/dl (12.0-15.5); LYMPH # 2.2 10^3/uL (1.5-5.0); LYMPH % 18.6 % (24.0-44.0); MEAN CORPUSCULAR HEMOGLOBIN 29.3 pg (27.0-33.0); MEAN CORPUSCULAR HGB CONC 32.6 g/dl (32.0-36.5); MEAN CORPUSCULAR VOLUME 89.8 fl (80.0-96.0); MONO # 0.5 10^3/uL (0.0-0.8); MONO % 4.1 % (2.0-8.0); NEUTROPHILS # 9.1 10^3/uL (1.5-8.5); NEUTROPHILS % 75.9 % (36.0-66.0); PLATELET COUNT, AUTOMATED 235 10^3/uL (150-450); RED BLOOD COUNT 4.82 10^6/uL (4.00-5.40)
[2024-08-10 15:04] LABS: INR 0.91; PARTIAL THROMBOPLASTIN TIME 30.8 SECONDS (24.8-34.2); PROTHROMBIN TIME 12.5 SECONDS (12.5-14.5)
[2024-08-10 15:23] LABS: HCG, SERUM QUALITATIVE NEGATIVE (NEGATIVE)
[2024-08-10 15:25] LABS: FREE T4 1.23 NG/DL (0.89-1.76); THYROID STIMULATING HORMONE 0.377 uIU/ML (0.55-4.78)
[2024-08-10 15:33] LABS: ALBUMIN 3.8 G/DL (3.2-5.2); ALKALINE PHOSPHATASE 83 U/L (35-104); ALT/SGPT 20 U/L (7.0-40); AST/SGOT 32 U/L (<34); BILIRUBIN,DIRECT < 0.1 MG/DL (<0.4); BILIRUBIN,TOTAL 0.3 MG/DL (0.3-1.2); BLOOD UREA NITROGEN 7 MG/DL (9-23); CARBON DIOXIDE LEVEL 23 MMOL/L (20-31); CHLORIDE LEVEL 112 MMOL/L (98-107); CK-MB VALUE MASS < 1.0 NG/ML (<3.6); CPK CREATINE PHOSPHOKINASE 91 U/L (34-145); CREATININE FOR GFR 0.53 MG/DL (0.55-1.30); GLOMERULAR FILTRATION RATE > 90.0 (>60); GLUCOSE, FASTING 114 MG/DL (60-100); LIPASE 29 U/L (12-53); MB/CK RELATIVE INDEX 1.09 (< OR =4); POTASSIUM SERUM 5.3 MMOL/L (3.5-5.1); SODIUM LEVEL 141 MMOL/L (136-145); TOTAL PROTEIN 6.8 G/DL (5.7-8.2)
[2024-08-10 16:24] LABS: CK-MB VALUE MASS < 1.0 NG/ML (<3.6)
[2024-08-10 16:25] LABS: CPK CREATINE PHOSPHOKINASE 60 U/L (34-145); MB/CK RELATIVE INDEX 1.66 (< OR =4)
[2024-08-10] MEDS ORDERED: ISOVUE-370 76% 100ML VIAL As Ordered ONE (16:33)
[2024-08-10 16:37] LABS: ETHYL ALCOHOL (ETHANOL) < 0.003 % (0.000-0.010)
[2024-08-10 16:38] LABS: SALICYLATE LEVEL < 3.0 MG/DL (<30)
[2024-08-10 17:40] LABS: AMPHETAMINES LEVEL URINE NEGATIVE (NEGATIVE); BARBITURATES URINE NEGATIVE (NEGATIVE); BENZODIAZEPINES URINE NEGATIVE (NEGATIVE); COCAINE METABOLITE URINE NEGATIVE (NEGATIVE); METHADONE URINE NEGATIVE (NEGATIVE); OPIATES URINE NEGATIVE (NEGATIVE)
[2024-08-10 17:41] LABS: CANNABINOIDS URINE NEGATIVE (NEGATIVE); PHENCYCLIDINE URINE NEGATIVE (NEGATIVE)
[2024-08-10 18:33] VITALS: BP 114/63; TEMP 99.1; O2SAT 93
== END 2024-08-10 18:40 | disposition home or self-care (01) ==
LOC: M ED 13:27
DX: R41.0 Disorientation, unspecified (principal); F43.23 Adjustment disorder with mixed anxiety and depressed mood; I10 Essential (primary) hypertension; F17.200 Nicotine dependence, unspecified, uncomplicated; Z88.5 Allergy status to narcotic agent; Z91.040 Latex allergy status; Z79.899 Other long term (current) drug therapy
CPT/HCPCS: 36415; 70450; 70496; 70498; 71045; 80048; 80076; 80143; 80307; 82077; 82550; 82553; 83690; 84439; 84443; 84484; 84703; 85025; 85610; 85730; 93005; 93041; 94760; 99285; Q9967